=== PATIENT | male | born 1960 | race Caucasian/White ===

== ENCOUNTER → 2017-12-31 15:18 | Outpatient (CLI) | payer OTHER, SELFPAY ==
--- NOTE | 2017-12-31 15:20 | DI.CT.S_ITS ---
PROCEDURE: CT CHEST ABD PEL W CON INDICATIONS: PROSTATE CANCER TECHNIQUE: After the administration of oral and intravenous contrast, 5 mm thick sections acquired from the lung apices to the symphysis. 5 mm coronal and sagittal reformats were performed, with additional 7 mm coronal MIP reformats through the lungs. For radiation dose reduction, the following was used: automated exposure control, adjustment of mA and/or kV according to patient size. COMPARISON: Outside Facility, , CT ABDOMEN/PELVIS WITHOUT CONTRAST, 10/21/2016, 12:59. [facility], CT, CHEST/ABD/PEL WITH CONTRAST, 06/01/2017, 15:40. FINDINGS: Image quality: Excellent. CHEST: Lungs and pleura: No acute consolidation. Unchanged appearance of 4 mm right middle lobe pulmonary nodule on image 31 series 7. No pleural effusion or pneumothorax. The central airways appear grossly patent. Mediastinum: Heart size is normal. No pericardial effusion. No mediastinal or hilar adenopathy by size criteria. Thoracic aorta and central pulmonary arteries are normal in size. Esophagus is normal in caliber. No hiatal hernia. Chest wall: No axillary or supraclavicular adenopathy by size criteria. Thyroid gland negative. ABDOMEN: Solid organs: Liver is normal in size and enhancement. Gallbladder negative. Biliary system is non dilated. Pancreas enhances normally. Spleen is normal in size and enhancement. No adrenal nodules. Nonobstructive 3 mm renal calculus. No hydronephrosis. A presumed left renal cyst measuring 1 mm, technically too small to characterize. This appears grossly unchanged. Peritoneum and bowel: Bowel loops demonstrate normal wall thickness and caliber. No free fluid or air. Normal appendix. Nodes and vessels: No retroperitoneal or mesenteric adenopathy by size criteria. Aorta and inferior vena cava are normal in size. Miscellaneous: No ventral hernias. PELVIS: Genitourinary: Bladder wall thickness is normal. Miscellaneous: No inguinal hernias or adenopathy. Bones: Sclerotic lesion within the right ischial tuberosity, L3 vertebral body, and right anterior fourth rib in keeping with osseous metastases appear grossly unchanged. 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 No pathologically enlarged lymphadenopathy Stable appearance of a 4 mm right middle lobe pulmonary nodule. Recommend continued attention on subsequent studies. Nonobstructive right nephrolithiasis and left renal cyst. Dictated by: Galo Armstrong M.D. on 12/31/2017 at 17:06 Approved by: Gaol Armstrong M.D. on 12/31/2017 at 17:32
--- NOTE | 2018-01-01 09:59 | ONC.NAV ---
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 It is located in the pt p/u box at his convenience.
== END ==
PROVIDERS: PCP Nurse Practitioner Family; Visit Provider Nurse Practitioner Gerontology
DX: C61 Malignant neoplasm of prostate (principal); C79.51 Secondary malignant neoplasm of bone; R91.1 Solitary pulmonary nodule; N20.0 Calculus of kidney; N28.1 Cyst of kidney, acquired
CPT/HCPCS: 71260; 74177; Q9967

== ENCOUNTER 2018-03-18 07:19 | Day surgery (SDC) | payer OTHER, SELFPAY ==
[2018-03-18] VITALS (7 sets, daily range): BP systolic 93–111; BP diastolic 65–74; PULSE 62–71; RESP 10–16; TEMP 36.1–36.3; O2SAT 94–100; BMI 26.6
--- NOTE | 2018-03-18 08:53 | PM.HP.1 ---
History of Present Illness Date Patient Seen: 03/18/18 Time Patient Seen: 08:54 Chief complaint: [id number] SCREENING COLONOSCOPY Narrative: Very pleasant gentleman with a family history of colon cancer. He presents today to undergo his 4th screening colonoscopy. He reports that his mother was diagnosed at the age of 50. He denies any problems or symptoms related to the function of his GI tract. Patient History Family & Social History Family History: Reviewed 03/18/18 by Mylene Monzon MD Social History: household members children Meds Home Medications Medication Instructions Recorded Confirmed Type [MAITAKE MUSHROOM] QDAY #0 11/21/16 History [TURMERIC] QDAY #0 11/21/16 History calcium carbonate-vitamin D3 1 tab PO QDAY #0 11/21/16 History [Oyster Shell Calcium-Vit D3] cholecalciferol (vitamin D3) 10,000 PO QDAY #0 11/21/16 History [CATCLAW TEA] #0 12/10/16 History [TINC OF CHAGA FUNGUS] #0 12/10/16 History [PROBIOTIC] 1 cap Q AM #0 12/22/16 History olive leaf extract 250 mg PO QDAY #0 12/22/16 History [ASHTANGA] QDAY #0 01/07/17 History vitamin B complex [B 1 tab PO QDAY #0 02/18/17 History Complex-Vitamin B12] [HI CBD OIL] #0 03/13/17 History acyclovir 400 mg PO BID #60 tab 12/25/17 Rx sulfamethoxazole-trimethoprim 1 tab PO Q12H #14 tab 01/05/18 Rx [Bactrim DS] sildenafil 50 mg PO PRN PRN #30 tab 01/15/18 Rx Allergies Allergy/AdvReac Type Severity Reaction Status Date / Time No Known Drug Allergies Allergy Unknown Unverified 11/25/17 11:53 [NO KNOWN DRUG ALLERGIES] Review of Systems Review of Systems All systems reviewed & are unremarkable except as noted in HPI and below Exam Vital Signs (past 8 hours): - 03/18/18 08:27 Temperature 97.0 F L Pulse Rate 65 Respiratory Rate 16 Blood Pressure 111/74 Pulse Oximetry 100 Oxygen Delivery Method Room Air Narrative Exam Narrative: Well-nourished well-developed gentleman in no distress. HEENT: Normocephalic and atraumatic, pupils equal round reactive to light accommodation with anicteric sclera Lungs: Clear to auscultation bilaterally Heart: Regular rate and rhythm Abdomen: Soft, nontender, active bowel sounds Extremities: Warm well perfused Assessment & Plan Plan: Assessment/Plan Narrative: Pleasant and very healthy 57-year-old gentleman with a family history of colon cancer. We discussed risks and benefits of the procedure the patient has expressed a desire to continue and complete it today.
[2018-03-18] MEDS: fentaNYL 250 MCG/5 ML INJ IV (09:12)
[2018-03-18] MEDS: MIDAZOLAM 5 MG/5 ML VIAL IV (09:12)
--- NOTE | 2018-03-18 09:19 | PM.OP.1 ---
Operative Date/Time/Diagnoses Date of procedure: 03/18/18 Time of procedure: 09:19 Pre-op diagnosis: Family history of colon cancer Post-op diagnosis: same Procedure & Clinicians Procedure: Colonoscopy to the cecum Same procedure as scheduled: Yes Indications: Last colonoscopy 5 years ago Surgeon: Mylene Monzon Click Yes if Unassisted: Yes Anesthesia Type: Sedation (Versed 8 mg; fentanyl 200 mcg) Operative Notes Findings: 1. Excellent prep 2. No polyps or mass lesions 3. No AV malformations 4. Very minimal diverticulosis in the sigmoid region 5. Grade 1 internal hemorrhoids 6. Essentially normal colonoscopy Closure Type: not applicable Specimen(s): none sent Procedure in detail: After obtaining informed consent, the patient was brought to the GI suite and placed in the left lateral decubitus position on the examination table. After placement of appropriate monitors, the patient was given incremental doses of Versed and Fentanyl until an appropriate level of sedation was achieved. A time out was held per SCOAP protocol. A digital rectal examination was performed and did not reveal any masses or obstructing lesions. The colonoscope was gently passed into the patient's anus and the entire colon navigated to the level of the cecum with minimal difficulty. Once in the cecum, the scope was withdrawn being sure to go before and beyond all mucosal folds and prominences and get an excellent examination. The findings are noted above. At the level of the rectal vault, the scope was retroflexed and the internal anal canal was examined. The scope was straightened and air aspirated from the colon. The instrument was removed from the patient's body and the procedure was concluded. The patient was allowed to awaken from sedation without difficulty and taken to the post-anesthesia care unit in good condition. Total sedation time 18 min Total withdrawal time 11 min
== END 2018-03-18 10:25 | disposition home or self-care (01) ==
PROVIDERS: PCP Nurse Practitioner Family; Visit Provider Surgery
PROC: 0DJD8ZZ Inspection of Lower Intestinal Tract, Via Natural or Artificial Opening Endoscopic (ICD-10-PCS; CPT 45378; principal; 2018-03-18 08:45)
DX: Z12.11 Encounter for screening for malignant neoplasm of colon (principal); Z80.0 Family history of malignant neoplasm of digestive organs; K57.30 Diverticulosis of large intestine without perforation or abscess without bleeding; K64.0 First degree hemorrhoids
CPT/HCPCS: 45378; 99152; J2250; J3010

== ENCOUNTER → 2018-07-16 15:10 | Outpatient (CLI) | payer OTHER, SELFPAY ==
[2018-07-16 15:45] LABS: Add Manual Diff / Slide Review NO; Basophils Percent Auto 0.4 % (0-2); Hematocrit 37.2 % (41-53); Hemoglobin 12.9 g/dL (13.5-17.5); Lymphocytes Percent Auto 47.5 % (25-40); Mean Corpuscular HGB Conc 34.6 % (30-36); Mean Corpuscular Hemoglobin 31.2 PG (26-34); Mean Corpuscular Volume 90.1 fL (80-100); Monocytes Percent Auto 7.8 % (3-14); Neutrophils Absolute Auto 2300 /uL (3000-5900); Neutrophils Percent Auto 43.3 % (50-75); Platelet Count 260 X10^3/uL (150-400); Red Blood Cell Count 4.13 X10^6/uL (4.5-5.9); White Blood Cell Count 5.2 X10^3/uL (4.5-11.0)
[2018-07-16 16:00] LABS: Alanine Aminotransferase 41 IU/L (21-72); Albumin 4.5 g/dL (3.5-5.0); Albumin Globulin Ratio 1.5 (1.0-2.8); Alkaline Phosphatase 87 U/L (38-126); Aspartate Aminotransferase 29 IU/L (17-59); BUN Creatinine Ratio 21.3 (6-22); Bilirubin Total 0.6 mg/dL (0.2-1.3); Blood Urea Nitrogen 17 mg/dL (9-20); Calcium 9.2 mg/dL (8.4-10.2); Carbon Dioxide 21 mmol/L (22-32); Chloride 102 mmol/L (98-107); Estimated Glomerular Filt Rate > 60.0 mL/min (>60); Globulin 3.1 g/dL (1.7-4.1); Glucose 92 mg/dL (70-100); HEMOLYSIS < 15 (0-50); Potassium 3.8 mmol/L (3.4-5.1); Sodium 138 mmol/L (137-145); Total Protein 7.6 g/dL (6.3-8.2)
[2018-07-16 16:31] LABS: Prostate Specific Antigen 0.859 ng/mL (0.10-4.00)
== END ==
PROVIDERS: PCP Nurse Practitioner Family; Visit Provider Internal Medicine Hematology & Oncology
DX: C61 Malignant neoplasm of prostate (principal)
CPT/HCPCS: 36415; 80053; 84153; 85025

== ENCOUNTER → 2018-07-30 16:13 | Outpatient (CLI) | payer OTHER, SELFPAY ==
[2018-07-30 16:48] LABS: Add Manual Diff / Slide Review NO; Basophils Percent Auto 0.4 % (0-2); Eosinophils Percent Auto 1.3 % (2-4); Hematocrit 38.1 % (41-53); Hemoglobin 12.9 g/dL (13.5-17.5); Lymphocytes Percent Auto 46.6 % (25-40); Mean Corpuscular HGB Conc 33.9 % (30-36); Mean Corpuscular Volume 91.3 fL (80-100); Monocytes Percent Auto 10.5 % (3-14); Neutrophils Absolute Auto 2000 /uL (1500-7000); Neutrophils Percent Auto 41.2 % (50-75); Platelet Count 266 X10^3/uL (150-400); Red Blood Cell Count 4.17 X10^6/uL (4.5-5.9); Red Cell Distribution Width 13.9 % (11.6-14.8); White Blood Cell Count 4.9 X10^3/uL (4.5-11.0)
[2018-07-30 17:48] LABS: Alanine Aminotransferase 29 IU/L (21-72); Albumin 4.4 g/dL (3.5-5.0); Albumin Globulin Ratio 1.5 (1.0-2.8); Alkaline Phosphatase 64 U/L (38-126); Aspartate Aminotransferase 20 IU/L (17-59); BUN Creatinine Ratio 21.3 (6-22); Bilirubin Total 0.5 mg/dL (0.2-1.3); Blood Urea Nitrogen 17 mg/dL (9-20); Calcium 9.5 mg/dL (8.4-10.2); Carbon Dioxide 24 mmol/L (22-32); Chloride 103 mmol/L (98-107); Estimated Glomerular Filt Rate > 60.0 mL/min (>60); Globulin 2.9 g/dL (1.7-4.1); Glucose 92 mg/dL (70-100); HEMOLYSIS < 15 (0-50); Potassium 4.4 mmol/L (3.4-5.1); Sodium 141 mmol/L (137-145); Total Protein 7.3 g/dL (6.3-8.2)
[2018-07-30 18:17] LABS: Prostate Specific Antigen 0.616 ng/mL (0.10-4.00)
== END ==
PROVIDERS: PCP Nurse Practitioner Family; Visit Provider Internal Medicine Hematology & Oncology
DX: C61 Malignant neoplasm of prostate (principal)
CPT/HCPCS: 36415; 80053; 84153; 85025

== ENCOUNTER → 2018-08-31 15:46 | Outpatient (CLI) | payer OTHER, SELFPAY ==
[2018-08-31 16:19] LABS: Add Manual Diff / Slide Review NO; Basophils Absolute Auto 0 /uL (0-100); Basophils Percent Auto 0.2 % (0-2); Eosinophils Absolute Auto 100 /uL (0-450); Eosinophils Percent Auto 1.2 % (2-4); Hematocrit 38.8 % (41-53); Lymphocytes Absolute Auto 2200 /uL (1100-4500); Lymphocytes Percent Auto 50.1 % (25-40); Mean Corpuscular HGB Conc 33.5 % (30-36); Mean Corpuscular Hemoglobin 30.9 PG (26-34); Mean Corpuscular Volume 92.2 fL (80-100); Monocytes Absolute Auto 400 /uL (0-900); Monocytes Percent Auto 8.2 % (3-14); Neutrophils Absolute Auto 1800 /uL (1500-7000); Neutrophils Percent Auto 40.3 % (50-75); Platelet Count 240 X10^3/uL (150-400); Red Blood Cell Count 4.21 X10^6/uL (4.5-5.9); Red Cell Distribution Width 14.2 % (11.6-14.8); White Blood Cell Count 4.4 X10^3/uL (4.5-11.0)
[2018-08-31 16:43] LABS: Alanine Aminotransferase 21 IU/L (21-72); Albumin 4.2 g/dL (3.5-5.0); Albumin Globulin Ratio 1.4 (1.0-2.8); Alkaline Phosphatase 51 U/L (38-126); Aspartate Aminotransferase 20 IU/L (17-59); BUN Creatinine Ratio 23.8 (6-22); Bilirubin Total 0.3 mg/dL (0.2-1.3); Blood Urea Nitrogen 19 mg/dL (9-20); Carbon Dioxide 25 mmol/L (22-32); Chloride 105 mmol/L (98-107); Estimated Glomerular Filt Rate > 60.0 mL/min (>60); Globulin 3.1 g/dL (1.7-4.1); Glucose 91 mg/dL (70-100); HEMOLYSIS < 15 (0-50); Phosphorous 3.6 mg/dL (2.5-4.5); Sodium 139 mmol/L (137-145); Total Protein 7.3 g/dL (6.3-8.2)
[2018-09-02 13:55] LABS: Prostate Specific Antigen 0.178 ng/mL (0.10-4.00)
== END ==
PROVIDERS: PCP Nurse Practitioner Family; Visit Provider Internal Medicine Hematology & Oncology
DX: C61 Malignant neoplasm of prostate (principal)
CPT/HCPCS: 36415; 80053; 83735; 84100; 84153; 85025

== ENCOUNTER → 2018-09-24 14:46 | Outpatient (CLI) | payer OTHER, SELFPAY ==
[2018-09-24 16:19] LABS: Prostate Specific Antigen 0.126 ng/mL (0.10-4.00)
== END ==
PROVIDERS: Family Provider Nurse Practitioner Family; PCP Nurse Practitioner Family; Visit Provider Internal Medicine Hematology & Oncology
DX: C61 Malignant neoplasm of prostate (principal)
CPT/HCPCS: 36415; 84153

== ENCOUNTER → 2018-10-29 15:37 | Outpatient (CLI) | payer OTHER, SELFPAY | PROVIDERS: Family Provider Nurse Practitioner Family; PCP Nurse Practitioner Family; Visit Provider Internal Medicine Hematology & Oncology | DX: C61 Malignant neoplasm of prostate (principal) | CPT/HCPCS: 36415; 84153 ==

== ENCOUNTER → 2018-11-22 11:00 | Outpatient (CLI) | payer OTHER, SELFPAY ==
[2018-11-22 13:06] LABS: Prostate Specific Antigen 0.097 ng/mL (0.10-4.00)
== END ==
PROVIDERS: Family Provider Nurse Practitioner Family; PCP Nurse Practitioner Family; Visit Provider Internal Medicine Hematology & Oncology
DX: C61 Malignant neoplasm of prostate (principal)
CPT/HCPCS: 36415; 84153

== ENCOUNTER → 2019-01-07 11:13 | Outpatient (CLI) | payer OTHER, SELFPAY ==
[2019-01-07 12:10] LABS: Alanine Aminotransferase 14 IU/L (21-72); Albumin 3.8 g/dL (3.5-5.0); Albumin Globulin Ratio 1.3 (1.0-2.8); Alkaline Phosphatase 47 U/L (38-126); Aspartate Aminotransferase 21 IU/L (17-59); BUN Creatinine Ratio 22.9 (6-22); Bilirubin Total 0.6 mg/dL (0.2-1.3); Blood Urea Nitrogen 16 mg/dL (9-20); Calcium 9.1 mg/dL (8.4-10.2); Carbon Dioxide 26 mmol/L (22-32); Chloride 100 mmol/L (98-107); Estimated Glomerular Filt Rate > 60.0 mL/min (>60); Globulin 2.9 g/dL (1.7-4.1); Glucose 86 mg/dL (70-100); HEMOLYSIS < 15 (0-50); Potassium 3.7 mmol/L (3.4-5.1); Sodium 135 mmol/L (137-145); Total Protein 6.7 g/dL (6.3-8.2)
[2019-01-07 12:40] LABS: Prostate Specific Antigen 0.088 ng/mL (0.10-4.00)
== END ==
PROVIDERS: Family Provider Nurse Practitioner Family; PCP Nurse Practitioner Family; Visit Provider Internal Medicine Hematology & Oncology
DX: C61 Malignant neoplasm of prostate (principal)
CPT/HCPCS: 36415; 80053; 84153

== ENCOUNTER → 2019-02-09 09:12 | Outpatient (CLI) | payer OTHER, SELFPAY ==
[2019-02-09 11:11] LABS: Alanine Aminotransferase 8 IU/L (21-72); Albumin 3.8 g/dL (3.5-5.0); Albumin Globulin Ratio 1.3 (1.0-2.8); Alkaline Phosphatase 49 U/L (38-126); Aspartate Aminotransferase 21 IU/L (17-59); Bilirubin Total 0.4 mg/dL (0.2-1.3); Blood Urea Nitrogen 24 mg/dL (9-20); Carbon Dioxide 25 mmol/L (22-32); Chloride 105 mmol/L (98-107); Estimated Glomerular Filt Rate > 60.0 mL/min (>60); Globulin 2.9 g/dL (1.7-4.1); Glucose 84 mg/dL (70-100); Potassium 4.2 mmol/L (3.4-5.1); Sodium 139 mmol/L (137-145); Total Protein 6.7 g/dL (6.3-8.2)
[2019-02-09 12:13] LABS: HEMOLYSIS < 15 (0-50)
[2019-02-09 12:15] LABS: Prostate Specific Antigen < 0.064 ng/mL (0.10-4.00)
== END ==
PROVIDERS: Family Provider Nurse Practitioner Family; PCP Nurse Practitioner Family; Visit Provider Internal Medicine Hematology & Oncology
DX: C61 Malignant neoplasm of prostate (principal)
CPT/HCPCS: 36415; 80053; 84153

== ENCOUNTER → 2019-03-16 15:54 | Outpatient (CLI) | payer OTHER, SELFPAY ==
[2019-03-16 16:53] LABS: Prostate Specific Antigen < 0.064 ng/mL (0.10-4.00)
== END ==
PROVIDERS: Family Provider Nurse Practitioner Family; PCP Nurse Practitioner Family; Visit Provider Internal Medicine Hematology & Oncology
DX: C61 Malignant neoplasm of prostate (principal)
CPT/HCPCS: 36415; 84153

== ENCOUNTER → 2019-04-28 15:26 | Outpatient (CLI) | payer OTHER, SELFPAY ==
[2019-04-28 16:55] LABS: Prostate Specific Antigen 0.082 ng/mL (0.10-4.00)
== END ==
PROVIDERS: PCP Nurse Practitioner Family; Visit Provider Internal Medicine Hematology & Oncology
DX: R97.20 Elevated prostate specific antigen [PSA] (principal)
CPT/HCPCS: 36415; 84153

== ENCOUNTER → 2019-05-31 15:34 | Outpatient (CLI) | payer OTHER, SELFPAY ==
[2019-05-31 17:06] LABS: Alanine Aminotransferase 14 IU/L (21-72); Albumin 4.2 g/dL (3.5-5.0); Albumin Globulin Ratio 1.5 (1.0-2.8); Alkaline Phosphatase 52 U/L (38-126); Aspartate Aminotransferase 22 IU/L (17-59); BUN Creatinine Ratio 18.9 (6-22); Bilirubin Total 0.6 mg/dL (0.2-1.3); Blood Urea Nitrogen 17 mg/dL (9-20); Calcium 9.3 mg/dL (8.4-10.2); Carbon Dioxide 24 mmol/L (22-32); Chloride 103 mmol/L (98-107); Estimated Glomerular Filt Rate > 60.0 mL/min (>60); Globulin 2.8 g/dL (1.7-4.1); Glucose 90 mg/dL (70-100); HEMOLYSIS < 15 (0-50); Potassium 3.8 mmol/L (3.4-5.1); Sodium 137 mmol/L (137-145)
[2019-05-31 17:36] LABS: Prostate Specific Antigen 0.117 ng/mL (0.10-4.00)
== END ==
PROVIDERS: PCP Nurse Practitioner Family; Visit Provider Internal Medicine Hematology & Oncology
DX: C61 Malignant neoplasm of prostate (principal)
CPT/HCPCS: 36415; 80053; 84153

== ENCOUNTER → 2019-06-29 15:26 | Outpatient (CLI) | payer OTHER, SELFPAY ==
[2019-06-29 17:16] LABS: Alanine Aminotransferase 15 IU/L (<50); Albumin 4.1 g/dL (3.5-5.0); Albumin Globulin Ratio 1.4 (1.0-2.8); Alkaline Phosphatase 60 U/L (38-126); Aspartate Aminotransferase 27 IU/L (17-59); BUN Creatinine Ratio 26.3 (6-22); Bilirubin Total 0.5 mg/dL (0.2-1.3); Blood Urea Nitrogen 21 mg/dL (9-20); Calcium 8.9 mg/dL (8.4-10.2); Carbon Dioxide 26 mmol/L (22-32); Chloride 102 mmol/L (98-107); Estimated Glomerular Filt Rate > 60.0 mL/min (>60); Globulin 2.9 g/dL (1.7-4.1); Glucose 94 mg/dL (70-100); HEMOLYSIS < 15 (0-50); Potassium 3.8 mmol/L (3.4-5.1); Sodium 139 mmol/L (137-145)
[2019-06-29 17:49] LABS: Prostate Specific Antigen 0.147 ng/mL (0.10-4.00)
== END ==
PROVIDERS: PCP Nurse Practitioner Family; Visit Provider Internal Medicine Hematology & Oncology
DX: C61 Malignant neoplasm of prostate (principal)
CPT/HCPCS: 36415; 80053; 84153

== ENCOUNTER → 2019-07-28 16:13 | Outpatient (CLI) | payer OTHER, SELFPAY ==
[2019-07-28 17:09] LABS: HEMOLYSIS < 15 (0-50)
[2019-07-28 17:19] LABS: Alanine Aminotransferase 17 IU/L (<50); Albumin 4.1 g/dL (3.5-5.0); Albumin Globulin Ratio 1.4 (1.0-2.8); Alkaline Phosphatase 63 U/L (38-126); Aspartate Aminotransferase 24 IU/L (17-59); BUN Creatinine Ratio 21.1 (6-22); Bilirubin Total 0.5 mg/dL (0.2-1.3); Blood Urea Nitrogen 19 mg/dL (9-20); Calcium 9.5 mg/dL (8.4-10.2); Carbon Dioxide 27 mmol/L (22-32); Chloride 102 mmol/L (98-107); Estimated Glomerular Filt Rate > 60.0 mL/min (>60); Glucose 85 mg/dL (70-100); Potassium 3.7 mmol/L (3.4-5.1); Sodium 139 mmol/L (137-145); Total Protein 7.1 g/dL (6.3-8.2)
[2019-07-28 17:42] LABS: Prostate Specific Antigen 0.154 ng/mL (0.10-4.00)
== END ==
PROVIDERS: Family Provider Nurse Practitioner Family; PCP Nurse Practitioner Family; Visit Provider Internal Medicine Hematology & Oncology
DX: C61 Malignant neoplasm of prostate (principal)
CPT/HCPCS: 36415; 80053; 84153

== ENCOUNTER → 2019-08-30 09:14 | Outpatient (CLI) | payer OTHER, SELFPAY ==
[2019-08-30 10:50] LABS: Add Manual Diff / Slide Review NO; Basophils Absolute Auto 0 /uL (0-100); Basophils Percent Auto 0.2 % (0-2); Eosinophils Absolute Auto 0 /uL (0-450); Hematocrit 38.3 % (41-53); Lymphocytes Absolute Auto 2000 /uL (1100-4500); Lymphocytes Percent Auto 44.8 % (25-40); Mean Corpuscular Hemoglobin 31.7 PG (26-34); Mean Corpuscular Volume 93.1 fL (80-100); Monocytes Absolute Auto 400 /uL (0-900); Monocytes Percent Auto 9.6 % (3-14); Neutrophils Absolute Auto 2000 /uL (1500-7000); Neutrophils Percent Auto 44.4 % (50-75); Platelet Count 242 X10^3/uL (150-400); Red Blood Cell Count 4.11 X10^6/uL (4.5-5.9); Red Cell Distribution Width 13.4 % (11.6-14.8); White Blood Cell Count 4.6 X10^3/uL (4.5-11.0)
[2019-08-30 11:04] LABS: Alanine Aminotransferase 13 IU/L (<50); Albumin Globulin Ratio 1.3 (1.0-2.8); Alkaline Phosphatase 62 U/L (38-126); Aspartate Aminotransferase 22 IU/L (17-59); BUN Creatinine Ratio 21.3 (6-22); Bilirubin Total 0.4 mg/dL (0.2-1.3); Blood Urea Nitrogen 17 mg/dL (9-20); Calcium 9.1 mg/dL (8.4-10.2); Carbon Dioxide 26 mmol/L (22-32); Chloride 100 mmol/L (98-107); Estimated Glomerular Filt Rate > 60.0 mL/min (>60); Globulin 3.1 g/dL (1.7-4.1); Glucose 81 mg/dL (70-100); HEMOLYSIS < 15 (0-50); Phosphorous 2.8 mg/dL (2.5-4.5); Potassium 3.9 mmol/L (3.4-5.1); Sodium 135 mmol/L (137-145); Total Protein 7.1 g/dL (6.3-8.2)
== END ==
PROVIDERS: PCP Nurse Practitioner Family; Visit Provider Internal Medicine Hematology & Oncology
DX: C61 Malignant neoplasm of prostate (principal)
CPT/HCPCS: 36415; 80053; 83735; 84100; 85025

== ENCOUNTER → 2019-09-05 13:10 | Outpatient (CLI) | payer OTHER, SELFPAY ==
[2019-09-05 15:37] LABS: Prostate Specific Antigen 0.203 ng/mL (0.10-4.00)
== END ==
PROVIDERS: PCP Nurse Practitioner Family; Visit Provider Internal Medicine Hematology & Oncology
DX: C61 Malignant neoplasm of prostate (principal)
CPT/HCPCS: 36415; 84153

== ENCOUNTER → 2019-10-05 15:59 | Outpatient (CLI) | payer OTHER, SELFPAY ==
[2019-10-05 18:31] LABS: Prostate Specific Antigen 0.242 ng/mL (0.10-4.00)
== END ==
PROVIDERS: PCP Nurse Practitioner Family; Referring Provider Nurse Practitioner Gerontology; Visit Provider Nurse Practitioner Gerontology
DX: C61 Malignant neoplasm of prostate (principal)
CPT/HCPCS: 36415; 84153

== ENCOUNTER → 2019-11-09 08:17 | Outpatient (CLI) | payer OTHER, SELFPAY ==
[2019-11-09 10:09] LABS: Prostate Specific Antigen 0.246 ng/mL (0.10-4.00)
== END ==
PROVIDERS: PCP Nurse Practitioner Family; Referring Provider Nurse Practitioner Gerontology; Visit Provider Nurse Practitioner Gerontology
DX: C61 Malignant neoplasm of prostate (principal)
CPT/HCPCS: 36415; 84153

== ENCOUNTER → 2019-12-02 08:01 | Outpatient (CLI) | payer OTHER, SELFPAY ==
[2019-12-02 08:57] LABS: Prostate Specific Antigen 0.408 ng/mL (0.10-4.00)
== END ==
PROVIDERS: PCP Nurse Practitioner Family; Referring Provider Internal Medicine Hematology & Oncology; Visit Provider Internal Medicine Hematology & Oncology
DX: C61 Malignant neoplasm of prostate (principal)
CPT/HCPCS: 36415; 84153

== ENCOUNTER → 2019-12-28 07:06 | Outpatient (CLI) | payer OTHER, SELFPAY ==
[2019-12-28 08:55] LABS: Prostate Specific Antigen 0.237 ng/mL (0.10-4.00)
== END ==
PROVIDERS: PCP Nurse Practitioner Family; Referring Provider Nurse Practitioner Gerontology; Visit Provider Nurse Practitioner Gerontology
DX: C61 Malignant neoplasm of prostate (principal)
CPT/HCPCS: 36415; 84153

== ENCOUNTER → 2020-01-30 14:09 | Outpatient (CLI) | payer OTHER, SELFPAY ==
[2020-01-30 16:43] LABS: Prostate Specific Antigen 0.248 ng/mL (0.10-4.00)
== END ==
PROVIDERS: PCP Nurse Practitioner Family; Referring Provider Nurse Practitioner Gerontology; Visit Provider Nurse Practitioner Gerontology
DX: C61 Malignant neoplasm of prostate (principal)
CPT/HCPCS: 36415; 84153

== ENCOUNTER → 2020-03-06 08:33 | Outpatient (CLI) | payer OTHER, SELFPAY ==
[2020-03-06 09:33] LABS: Prostate Specific Antigen 0.319 ng/mL (0.10-4.00)
== END ==
PROVIDERS: PCP Nurse Practitioner Family; Referring Provider Internal Medicine Hematology & Oncology; Visit Provider Internal Medicine Hematology & Oncology
DX: C61 Malignant neoplasm of prostate (principal)
CPT/HCPCS: 36415; 84153

== ENCOUNTER → 2020-04-05 06:56 | Outpatient (CLI) | payer OTHER, SELFPAY ==
[2020-04-05 09:20] LABS: Prostate Specific Antigen 0.335 ng/mL (0.10-4.00)
== END ==
PROVIDERS: PCP Nurse Practitioner Family; Referring Provider Internal Medicine Hematology & Oncology; Visit Provider Internal Medicine Hematology & Oncology
DX: C61 Malignant neoplasm of prostate (principal)
CPT/HCPCS: 36415; 84153

== ENCOUNTER → 2020-05-01 07:17 | Outpatient (CLI) | payer OTHER, SELFPAY | PROVIDERS: PCP Nurse Practitioner Family; Referring Provider Internal Medicine Hematology & Oncology; Visit Provider Internal Medicine Hematology & Oncology | DX: C61 Malignant neoplasm of prostate (principal) | CPT/HCPCS: 36415; 84153 ==

== ENCOUNTER → 2020-05-31 15:31 | Outpatient (CLI) | payer OTHER, SELFPAY ==
[2020-05-31 18:26] LABS: Prostate Specific Antigen 0.392 ng/mL (0.10-4.00)
== END ==
PROVIDERS: PCP Nurse Practitioner Family; Referring Provider Internal Medicine Hematology & Oncology; Visit Provider Internal Medicine Hematology & Oncology
DX: C61 Malignant neoplasm of prostate (principal)
CPT/HCPCS: 36415; 84153

== ENCOUNTER → 2020-06-29 15:12 | Outpatient (CLI) | payer OTHER, SELFPAY ==
[2020-06-29 17:54] LABS: Prostate Specific Antigen 0.436 ng/mL (0.10-4.00)
== END ==
PROVIDERS: Referring Provider Internal Medicine Hematology & Oncology; Visit Provider Internal Medicine Hematology & Oncology
DX: C61 Malignant neoplasm of prostate (principal)
CPT/HCPCS: 36415; 84153

== ENCOUNTER → 2020-07-30 15:48 | Outpatient (CLI) | payer OTHER, SELFPAY ==
[2020-07-30 17:53] LABS: Prostate Specific Antigen 0.492 ng/mL (0.10-4.00)
== END ==
PROVIDERS: Referring Provider Internal Medicine Hematology & Oncology; Visit Provider Internal Medicine Hematology & Oncology
DX: C61 Malignant neoplasm of prostate (principal)
CPT/HCPCS: 36415; 84153

== ENCOUNTER → 2020-10-03 12:18 | Outpatient (CLI) | payer OTHER, SELFPAY ==
[2020-10-03 15:11] LABS: Prostate Specific Antigen 0.573 ng/mL (0.10-4.00)
== END ==
PROVIDERS: Referring Provider Internal Medicine Hematology & Oncology; Visit Provider Internal Medicine Hematology & Oncology
DX: C61 Malignant neoplasm of prostate (principal)
CPT/HCPCS: 36415; 84153

== ENCOUNTER → 2020-10-31 16:22 | Outpatient (CLI) | payer OTHER, SELFPAY ==
[2020-10-31 18:16] LABS: Prostate Specific Antigen 0.771 ng/mL (0.10-4.00)
== END ==
PROVIDERS: Referring Provider Internal Medicine Hematology & Oncology; Visit Provider Internal Medicine Hematology & Oncology
DX: C61 Malignant neoplasm of prostate (principal)
CPT/HCPCS: 36415; 84153

== ENCOUNTER → 2021-01-07 15:50 | Outpatient (CLI) | payer OTHER, SELFPAY ==
[2021-01-07 18:13] LABS: Prostate Specific Antigen 1.22 ng/mL (0.10-4.00)
== END ==
PROVIDERS: Referring Provider Internal Medicine Hematology & Oncology; Visit Provider Internal Medicine Hematology & Oncology
DX: C79.82 Secondary malignant neoplasm of genital organs (principal)
CPT/HCPCS: 36415; 84153

== ENCOUNTER → 2021-01-16 08:54 | Outpatient (CLI) | payer SELFPAY ==
[2021-01-16 09:20] LABS: Specimen Label KIT
== END ==
PROVIDERS: PCP Nurse Practitioner Family
DX: Z13.9 Encounter for screening, unspecified (principal)
CPT/HCPCS: 36415

== ENCOUNTER → 2021-01-25 15:14 | Outpatient (CLI) | payer OTHER, SELFPAY ==
--- NOTE | 2021-01-25 | DI.RAD.S_ITS ---
PROCEDURE: XR CHEST 2V INDICATIONS: COUGH TECHNIQUE: 2 views of the chest were acquired. COMPARISON: [facility], CHEST 1 VIEW, 05/08/2017, 12:59. [facility], CHEST 1 VIEW, 12/17/2016, 16:11. FINDINGS: Surgical changes and devices: None. Lungs and pleura: Lungs are clear. No pleural effusions or pneumothorax. Mediastinum: Mediastinal contours are normal. Heart size is normal. Bones and chest wall: No suspicious bony abnormalities. Soft tissues appear unremarkable. IMPRESSION: Normal for age, source of current cough symptoms is not seen. Dictated by: Abisai Benedict M.D. on 01/25/2021 at 17:54 Approved by: Abisai Bendeict M.D. on 01/25/2021 at 17:54
== END ==
PROVIDERS: PCP Nurse Practitioner Family; Referring Provider Family Medicine; Visit Provider Family Medicine
DX: R05 Cough (principal)
CPT/HCPCS: 71046

== ENCOUNTER → 2021-02-19 16:25 | Outpatient (CLI) | payer OTHER, SELFPAY ==
[2021-02-20 07:46] LABS: PSA Free % 5.6 % (.); PSA, Total 0.9 ng/mL (0.0-4.0)
== END ==
PROVIDERS: PCP Family Medicine; Referring Provider Internal Medicine Hematology & Oncology; Visit Provider Internal Medicine Hematology & Oncology
DX: C61 Malignant neoplasm of prostate (principal)
CPT/HCPCS: 36415; 84153; 84154

== ENCOUNTER → 2021-03-22 07:55 | Outpatient (CLI) | payer OTHER, SELFPAY ==
[2021-03-22 10:03] LABS: Prostate Specific Antigen 1.18 ng/mL (0.10-4.00)
== END ==
PROVIDERS: PCP Family Medicine; Referring Provider Internal Medicine Hematology & Oncology; Visit Provider Internal Medicine Hematology & Oncology
DX: R97.20 Elevated prostate specific antigen [PSA] (principal)
CPT/HCPCS: 36415; 84153

== ENCOUNTER → 2021-05-01 09:28 | Outpatient (CLI) | payer OTHER, SELFPAY ==
[2021-05-01 11:22] LABS: COVID-19 CEPHEID PCR (VTM/NP) Negative (Negative)
== END ==
PROVIDERS: PCP Family Medicine; Visit Provider Nurse Practitioner Family
DX: Z20.822 Contact with and (suspected) exposure to COVID-19 (principal)
CPT/HCPCS: U0003

== ENCOUNTER → 2021-06-27 09:31 | Outpatient (CLI) | payer OTHER, SELFPAY | PROVIDERS: PCP Family Medicine; Referring Provider Internal Medicine Hematology & Oncology; Visit Provider Internal Medicine Hematology & Oncology | DX: M85.851 Other specified disorders of bone density and structure, right thigh (principal); C61 Malignant neoplasm of prostate | CPT/HCPCS: 77080 ==

== ENCOUNTER 2021-07-19 11:03 | Emergency (ER) | payer OTHER, SELFPAY ==
[2021-07-19] VITALS (17 sets, daily range): BP systolic 117–146; BP diastolic 75–90; PULSE 58–68; RESP 11–28; TEMP 36.2; O2SAT 99–100; BMI 26.6
--- NOTE | 2021-07-19 11:31 | DI.CT.S_ITS ---
PROCEDURE: CT HEAD/BRAIN WO CON INDICATIONS: right arm weak, confusion, ataxia TECHNIQUE: Noncontrast 4.5 mm thick angled axial sections acquired from the foramen magnum to the vertex, with coronal and sagittal reformats. For radiation dose reduction, the following was used: automated exposure control, adjustment of mA and/or kV according to patient size. COMPARISON: [facility], CT, HEAD WITHOUT CONTRAST, 05/08/2017, 12:57. FINDINGS: Image quality: Excellent. CSF spaces: Basal cisterns are patent. No extra-axial fluid collections. The ventricles are symmetric in size and shape. Brain: No intracranial bleeds or masses. There is cerebral volume loss for age, with resultant ventricular and sulcal prominence. There are periventricular and deep white matter chronic small vessel ischemic changes. There is intracranial internal carotid artery atherosclerosis. Skull and face: Calvarium and visualized facial bones appear intact, without suspicious lesions. Sinuses: Visualized sinuses and mastoids are clear. IMPRESSION: No acute intracranial process. Dictated by: Galo Armstrong M.D. on 07/19/2021 at 12:08 Approved by: Galo Armstrong M.D. on 07/19/2021 at 12:10
--- NOTE | 2021-07-19 11:32 | DI.CT.S_ITS ---
PROCEDURE: CT CERVICAL SPINE WO CON INDICATIONS: right arm tingling / cold per pt. h/o prostate ca w/bone met TECHNIQUE: Noncontrast 3 mm thick sections acquired from the skull base to the T4 level. Sagittal and coronal reformats were then constructed. For radiation dose reduction, the following was used: automated exposure control, adjustment of mA and/or kV according to patient size. COMPARISON: None. FINDINGS: Image quality: Excellent. Bones: No acute fracture. Straightening of the normal lordotic curvature. Grade 1 anterolisthesis of C4 on C5. Multilevel degenerative endplate sclerosis and spurring. Diffuse facet arthropathy. Moderate to severe narrowing of the C5-C6 and C6-C7 disc spaces. Partially visualized lateral curvature of the spine. No definite focal sclerotic metastasis seen in the cervical spine. Soft tissues: Prevertebral soft tissues are normal in thickness. No paravertebral hematomas. No apical pneumothoraces. IMPRESSION: No acute fracture identified. Spondylitic changes and facet arthropathy as above. Dictated by: Galo Armstrong M.D. on 07/19/2021 at 12:19 Approved by: Galo Armstrong M.D. on 07/19/2021 at 12:26
[2021-07-19 11:45] LABS: Add Manual Diff / Slide Review NO; Basophils Absolute Auto 0 /uL (0-100); Basophils Percent Auto 0.4 % (0-2); Eosinophils Absolute Auto 0 /uL (0-450); Eosinophils Percent Auto 0.9 % (2-4); Hematocrit 37.9 % (41-53); Lymphocytes Absolute Auto 1900 /uL (1100-4500); Lymphocytes Percent Auto 42.1 % (25-40); Mean Corpuscular HGB Conc 34.3 % (30-36); Mean Corpuscular Hemoglobin 31.5 PG (26-34); Mean Corpuscular Volume 91.8 fL (80-100); Monocytes Absolute Auto 500 /uL (0-900); Monocytes Percent Auto 9.9 % (3-14); Neutrophils Absolute Auto 2100 /uL (1500-7000); Neutrophils Percent Auto 46.7 % (50-75); Platelet Count 246 X10^3/uL (150-400); Red Blood Cell Count 4.13 X10^6/uL (4.5-5.9); Red Cell Distribution Width 13.2 % (11.6-14.8); White Blood Cell Count 4.6 X10^3/uL (4.5-11.0)
[2021-07-19 11:54] LABS: Prothrombin Time 11.1 SECONDS (10.1-12.7)
[2021-07-19 11:57] LABS: PTT Partial Thromboplastin Tim 33 SECONDS (26.4-36.2)
[2021-07-19 12:01] LABS: Alanine Aminotransferase 16 IU/L (<50); Albumin 4.2 g/dL (3.5-5.0); Albumin Globulin Ratio 1.4 (1.0-2.8); Alkaline Phosphatase 37 U/L (38-126); Aspartate Aminotransferase 26 IU/L (17-59); BUN Creatinine Ratio 18.2 (6-22); Bilirubin Total 0.7 mg/dL (0.2-1.3); Blood Urea Nitrogen 14 mg/dL (9-20); Calcium 8.9 mg/dL (8.4-10.2); Carbon Dioxide 25 mmol/L (22-32); Chloride 103 mmol/L (98-107); Creatine Kinase 65 U/L (55-170); Estimated Glomerular Filt Rate > 60.0 mL/min (>60); Glucose 95 mg/dL (70-100); HEMOLYSIS 45 (0-50); Potassium 3.7 mmol/L (3.4-5.1); Sodium 134 mmol/L (137-145); Total Protein 7.2 g/dL (6.3-8.2)
[2021-07-19 12:11] LABS: Troponin I < 0.012 ng/mL (0.01-0.034)
--- NOTE | 2021-07-19 12:45 | PC.NURSE ---
Pt states Thursday (4 days ago) he has a period of profound full body weakness that lasted about 1 min. States the next day he had curtain vision in his R eye with some residual tingling that is still mildy apparent on his R arm. States that he googled his sx and decided to go to the eye doctor to r/o retinal detachment. Was cleared by eye doctor and told to f/u with pcp. Pt saw Dr Zheng who placed him on a baby ASA and statin. pt states that he started the statin but has not started the baby ASA.
--- NOTE | 2021-07-19 13:22 | ED.NEUROSD ---
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 The throughout the week he has had a couple of episodes concerning for TIA. 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 The following day he had a visual change in his right eye. He had a clear horizontal line in his right eye. He is actually evaluated by ophthalmology who stated his retina was not detached there was concern for probable TIA he was then sent to his primary care provider who has ordered outpatient workup including echocardiogram and carotid Dopplers. This morning however he was trying to make a test something that he has done for numerous years he was copy and pasted but was unable to coordinate hand I in order to do that. He could not copy and paste the right information. It lasted for 90 minutes. Symptoms now resolved. He no longer has any visual issues no numbness tingling or weakness. On Anticoagulants: Yes (ASA 81 mg daily) Related Data Home Medications Medication Instructions Recorded Confirmed [MAITAKE MUSHROOM] QDAY #0 11/21/16 [TURMERIC] QDAY #0 11/21/16 calcium carbonate 500 mg (1,250 1 tab PO QDAY #0 11/21/16 05/26/18 mg)-vitamin D3 200 unit tablet (Oyster Shell Calcium-Vit D3) cholecalciferol (vitamin D3) 250 10,000 PO QDAY #0 11/21/16 mcg (10,000 unit) tablet [CATCLAW TEA] #0 12/10/16 [TINC OF [place] FUNGUS] #0 12/10/16 [PROBIOTIC] 1 cap Q AM #0 12/22/16 olive leaf extract 250 mg capsule 250 mg PO QDAY #0 12/22/16 05/26/18 [ASHTANGA] QDAY #0 01/07/17 vitamin B complex (B 1 tab PO QDAY #0 02/18/17 05/26/18 Complex-Vitamin B12) [HI CBD OIL] #0 03/13/17 Previous Rx's Medication Instructions Recorded acyclovir 400 mg tablet 400 mg PO BID #60 tab 12/25/17 sulfamethoxazole 800 1 tab PO Q12H #14 tab 01/05/18 mg-trimethoprim 160 mg tablet (Bactrim DS) sildenafil 50 mg tablet 50 mg PO PRN PRN #30 tab 01/15/18 Allergies Allergy/AdvReac Type Severity Reaction Status Date / Time No Known Drug Allergies Allergy Unknown Verified 07/19/21 11:30 [NO KNOWN DRUG ALLERGIES] Review of Systems Review of Systems Narrative: GENERAL: Denies chills, fatigue, malaise, fever, sweats, travel HEENT: Denies sinus pain, ear pain, sore throat, difficulty swallowing, neck pain RESPIRATORY: Denies dyspnea, cough, wheezing, hemoptysis, sputum. CARDIOVASCULAR: Denies chest pain, palpitations, orthopnea, edema GASTROINTESTINAL: Denies nausea, vomiting, abdominal pain, diarrhea, constipation, melena. : Denies dysuria, frequency, incontinence, hematuria, urinary retention, flank pain. MUSCULOSKELETAL: Denies weakness, joint pain, or bony pain SKIN: No rash, no erythema, no pruritus NEUROLOGIC: See HPI PSYCHIATRIC: No concerning psychosocial issues. 12 point review of systems is negative except for those stated above and HPI Hematologic/Lymphatic On Anticoagulants: Yes (ASA 81 mg daily) Patient History Social History household members: children Smoking Status: Never smoker Smoking Status: Never smoker Exam Initial Vital Signs Initial Vital Signs: Vital Signs Temperature 97.1 F L 07/19/21 11:23 Pulse Rate 68 07/19/21 11:23 Respiratory Rate 18 07/19/21 11:23 Blood Pressure 139/82 07/19/21 11:23 Pulse Oximetry 100 07/19/21 11:23 GENERAL: Alert 60-year-old and in no acute distress. HEENT: Head atraumatic,EOMI, pupils reactive, face symmetric, moist mucous membranes CARDIOVASCULAR: Regular rate and rhythm without murmurs, rubs or gallops. RESPIRATORY: Breath sounds equal bilaterally, no wheezes rales or rhonchi. ABDOMEN: Soft, nontender. Normoactive bowel sounds all 4 quadrants. No guarding or rebound. EXTREMITIES: Normal range of motion, no clubbing or edema. Neurovascularly intact NEUROLOGICAL: Alert and oriented x4.Normal gait and speech. Cranial nerves II through XII grossly intact. Good rblzbk-fx-ktuo, good tdck-yt-mvdu, strength equal bilaterally, no dysarthria or aphasia, sensation in tact to soft touch bilaterally, no visual changes, no facial droop SKIN: Warm, dry, no laceration, no petechiae, no rashes or lesions. Scores NIH Stroke Scale Level of Conciousness: Alert, keenly responsive Ask month/age: Answers both questions correctly. Open/close eyes, close hand: Performs both tasks correctly Best gaze horizontal: Normal Visual burns: No visual loss Facial palsy: Normal symetrical movement Left arm drift: No drift for full 10 sec Right arm drift: No drift for full 10 sec Left leg drift: No drift for full 5 sec Right leg drift: No drift for full 5 sec Limb ataxia: Absent Sensory on face/arms/legs: Normal, no sensory loss Best language: No aphasia, normal Dysarthria: Normal Extinction or inattention: No abnormality Total NIH Stroke scale score: 0 Course Orders Ordered: ED Orders 07/19/21 11:31 CT head/brain wo con Stat Urine Drug Screen, Rapid Stat 07/19/21 11:32 CT cervical spine wo con Stat 07/19/21 11:36 Complete Blood Count AUTO DIFF Stat Comprehensive Metabolic Panel Stat Partial Thromboplastin Time Stat Prothrombin Time INR Stat Troponin & CK Cardiac Panel Stat 07/19/21 13:39 CT angio head and neck Stat 07/19/21 15:00 MR head/brain wo con Stat 07/19/21 15:16 Urinalysis and Microscopic Stat 07/19/21 15:18 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) Stat 07/19/21 15:32 Urine Drug Screen, Rapid Stat 07/19/21 16:11 EKG-12 Lead Stat Discontinued Medications Aspirin (Aspirin 325 Mg Tablet) 325 mg PO NOW ONE Stop: 07/19/21 13:40 Last Admin: 07/19/21 14:13 Dose: Not Given Documented by: ALEJO Aspirin (Aspirin 81 Mg Chew Tab) 324 mg PO NOW ONE Stop: 07/19/21 14:16 Last Admin: 07/19/21 14:21 Dose: 324 mg Documented by: ALEJO Vital Signs Vital signs: Vital Signs - 8 hr 07/19/21 12:23 07/19/21 12:24 07/19/21 12:30 Pulse Rate 63 60 63 Respiratory Rate 22 17 20 Blood Pressure 121/75 136/84 Pulse Oximetry 100 100 100 07/19/21 13:00 07/19/21 13:30 07/19/21 14:00 Pulse Rate 65 63 60 Respiratory Rate 28 H 11 L Blood Pressure 146/88 H Pulse Oximetry 100 100 99 07/19/21 14:30 07/19/21 15:00 07/19/21 15:17 Pulse Rate 63 59 L 58 L Respiratory Rate 14 20 28 H Blood Pressure Pulse Oximetry 100 100 100 07/19/21 15:18 07/19/21 15:30 07/19/21 16:17 Pulse Rate 60 60 58 L Respiratory Rate 22 23 16 Blood Pressure 132/78 117/85 Pulse Oximetry 100 100 100 07/19/21 16:28 07/19/21 16:29 07/19/21 16:30 Pulse Rate 61 61 60 Respiratory Rate 15 16 18 Blood Pressure 123/90 126/85 Pulse Oximetry 100 100 100 07/19/21 17:00 Pulse Rate 60 Respiratory Rate 21 Blood Pressure Pulse Oximetry 100 MDM - Neuro Symptoms/Deficit Lab Data Result diagrams: 07/19/21 11:36 07/19/21 11:36 Labs: Lab Results 07/19/21 07/19/21 07/19/21 Range/Units 11:36 11:36 11:36 WBC 4.6 (4.5-11.0) X10^3/uL RBC 4.13 L (4.5-5.9) X10^6/uL Hgb 13.0 L (13.5-17.5) g/dL Hct 37.9 L (41-53) % MCV 91.8 (80-100) fL MCH 31.5 (26-34) PG MCHC 34.3 (30-36) % RDW 13.2 (11.6-14.8) % Plt Count 246 (150-400) X10^3/uL Neut % (Auto) 46.7 L (50-75) % Lymph % (Auto) 42.1 H (25-40) % [place] % (Auto) 9.9 (3-14) % Eos % (Auto) 0.9 L (2-4) % Baso % (Auto) 0.4 (0-2) % Neut # (Auto) 2100 (9181-8502) /uL Lymph # (Auto) 1900 (9793-1369) /uL [place] # (Auto) 500 (0-900) /uL Eos # (Auto) 0 (0-450) /uL Baso # (Auto) 0 (0-100) /uL PT 11.1 (10.1-12.7) SECONDS INR 1.0 (0.9-1.3) APTT 33 (26.4-36.2) SECONDS Sodium 134 L (137-145) mmol/L Potassium 3.7 (3.4-5.1) mmol/L Chloride 103 (98-107) mmol/L Carbon Dioxide 25 (22-32) mmol/L BUN 14 (9-20) mg/dL Creatinine 0.77 (0.66-1.25) mg/dL Estimated GFR > 60.0 (>60) mL/min BUN/Creatinine Ratio 18.2 (6-22) Glucose 95 (70-100) mg/dL Calcium 8.9 (8.4-10.2) mg/dL Total Bilirubin 0.7 (0.2-1.3) mg/dL AST 26 (17-59) IU/L ALT 16 (<50) IU/L Alkaline Phosphatase 37 L (38-126) U/L Total Creatine Kinase 65 (55-170) U/L CK-MB (CK-2) TNP CK-MB (CK-2) Rel Index TNP Troponin I < 0.012 (0.01-0.034) ng/mL Total Protein 7.2 (6.3-8.2) g/dL Albumin 4.2 (3.5-5.0) g/dL Globulin 3.0 (1.7-4.1) g/dL Albumin/Globulin Ratio 1.4 (1.0-2.8) Urine Color Urine Appearance Urine pH (4.5-8.0) Ur Specific [place] (1.000-1.035) Urine Protein (Negative) Urine Glucose (UA) (Negative) g/dL Urine Ketones (NEGATIVE) Urine Occult Blood (Negative) Urine Nitrate (Negative) Urine Bilirubin (NEGATIVE) Urine Urobilinogen (0.2) E.U./dL Ur Leukocyte Esterase (NEGATIVE) Urine RBC (0-5/HPF) Urine WBC (0-5/HPF) Urine Bacteria (None) Ur Culture Indicated? U Opiates 300ng/mL cut (Negative) Ur Oxycodone Screen (Negative) Urine Methadone Screen (Negative) Ur Barbiturates Screen (Negative) U Tricyclic Antidepress (Negative) Ur Phencyclidine Scrn (Negative) Ur Amphetamines Screen (Negative) U Methamphetamines Scrn (Negative) Ur MDMA Scrn (Ecstasy) (Negative) U Benzodiazepines Scrn (Negative) Urine Cocaine Screen (Negative) U Marijuana (THC) Screen (Negative) SARS-CoV-2 (PCR) (Negative) 07/19/21 07/19/21 07/19/21 Range/Units 15:16 15:18 15:32 WBC (4.5-11.0) X10^3/uL RBC (4.5-5.9) X10^6/uL Hgb (13.5-17.5) g/dL Hct (41-53) % MCV (80-100) fL MCH (26-34) PG MCHC (30-36) % RDW (11.6-14.8) % Plt Count (150-400) X10^3/uL Neut % (Auto) (50-75) % Lymph % (Auto) (25-40) % [place] % (Auto) (3-14) % Eos % (Auto) (2-4) % Baso % (Auto) (0-2) % Neut # (Auto) (6457-2758) /uL Lymph # (Auto) (4820-5891) /uL [place] # (Auto) (0-900) /uL Eos # (Auto) (0-450) /uL Baso # (Auto) (0-100) /uL PT (10.1-12.7) SECONDS INR (0.9-1.3) APTT (26.4-36.2) SECONDS Sodium (137-145) mmol/L Potassium (3.4-5.1) mmol/L Chloride (98-107) mmol/L Carbon Dioxide (22-32) mmol/L BUN (9-20) mg/dL Creatinine (0.66-1.25) mg/dL Estimated GFR (>60) mL/min BUN/Creatinine Ratio (6-22) Glucose (70-100) mg/dL Calcium (8.4-10.2) mg/dL Total Bilirubin (0.2-1.3) mg/dL AST (17-59) IU/L ALT (<50) IU/L Alkaline Phosphatase (38-126) U/L Total Creatine Kinase (55-170) U/L CK-MB (CK-2) CK-MB (CK-2) Rel Index Troponin I (0.01-0.034) ng/mL Total Protein (6.3-8.2) g/dL Albumin (3.5-5.0) g/dL Globulin (1.7-4.1) g/dL Albumin/Globulin Ratio (1.0-2.8) Urine Color Yellow Urine Appearance Clear Urine pH 7.5 (4.5-8.0) Ur Specific [place] <=1.005 (1.000-1.035) Urine Protein Negative (Negative) Urine Glucose (UA) Negative (Negative) g/dL Urine Ketones Negative (NEGATIVE) Urine Occult Blood Trace-lysed (Negative) Urine Nitrate Negative (Negative) Urine Bilirubin Negative (NEGATIVE) Urine Urobilinogen 0.2 (0.2) E.U./dL Ur Leukocyte Esterase Negative (NEGATIVE) Urine RBC None seen (0-5/HPF) Urine WBC None seen (0-5/HPF) Urine Bacteria None seen (None) Ur Culture Indicated? Cult not indicated U Opiates 300ng/mL cut Negative (Negative) Ur Oxycodone Screen Negative (Negative) Urine Methadone Screen Negative (Negative) Ur Barbiturates Screen Negative (Negative) U Tricyclic Antidepress Negative (Negative) Ur Phencyclidine Scrn Negative (Negative) Ur Amphetamines Screen Negative (Negative) U Methamphetamines Scrn Negative (Negative) Ur MDMA Scrn (Ecstasy) Negative (Negative) U Benzodiazepines Scrn Negative (Negative) Urine Cocaine Screen Negative (Negative) U Marijuana (THC) Screen Negative (Negative) SARS-CoV-2 (PCR) Negative (Negative) Imaging Data CT scan - head: Radiologist's Impression: PROCEDURE:? CT HEAD/BRAIN WO CON ? INDICATIONS:? right arm weak, confusion, ataxia ? TECHNIQUE:? Noncontrast 4.5 mm thick angled axial sections acquired from the foramen magnum to the vertex, with coronal and sagittal reformats.? For radiation dose reduction, the following was used:? automated exposure control, adjustment of mA and/or kV according to patient size.? ? COMPARISON:? [facility], CT, HEAD WITHOUT CONTRAST, 05/08/2017, 12:57. ? FINDINGS:? Image quality:? Excellent.? ? CSF spaces:? Basal cisterns are patent.? No extra-axial fluid collections.? The ventricles are symmetric in size and shape.? ? Brain:? No intracranial bleeds or masses.? There is cerebral volume loss for age, with resultant ventricular and sulcal prominence.? There are periventricular and deep white matter chronic small vessel ischemic changes.? There is intracranial internal carotid artery atherosclerosis.? ? Skull and face:? Calvarium and visualized facial bones appear intact, without suspicious lesions.? ? Sinuses:? Visualized sinuses and mastoids are clear.? ? IMPRESSION:? No acute intracranial process. ? Dictated by: Galo Armstrong M.D. on 07/19/2021 at 12:08 ? ? CT - cervical spine: Radiologist's Impression: PROCEDURE:? CT CERVICAL SPINE WO CON ? INDICATIONS:? right arm tingling / cold per pt. h/o prostate ca w/bone met ? TECHNIQUE:? Noncontrast 3 mm thick sections acquired from the skull base to the T4 level.? Sagittal and coronal reformats were then constructed.? For radiation dose reduction, the following was used:? automated exposure control, adjustment of mA and/or kV according to patient size.? ? COMPARISON:? None. ? FINDINGS:? Image quality:? Excellent.? ? Bones:? No acute fracture. Straightening of the normal lordotic curvature.? Grade 1 anterolisthesis of C4 on C5. Multilevel degenerative endplate sclerosis and spurring.? Diffuse facet arthropathy.? Moderate to severe narrowing of the C5-C6 and C6-C7 disc spaces.? Partially visualized lateral curvature of the spine.? No definite focal sclerotic metastasis seen in the cervical spine. ? Soft tissues:? Prevertebral soft tissues are normal in thickness.? No paravertebral hematomas.? No apical pneumothoraces.? ? ? IMPRESSION:? ? No acute fracture identified. ? Spondylitic changes and facet arthropathy as above. ? Dictated by: Galo Armstrong M.D. on 07/19/2021 at 12:19 ?? CTA - brain/neck: Radiologist's Impression: PROCEDURE:? CT ANGIO HEAD AND NECK ? INDICATIONS:? visual problems, right hand coordination ? TECHNIQUE:? Noncontrast images were performed earlier in the day and not repeated.? ? After the administration of intravenous contrast, 1 mm thick sections acquired from the aortic arch through the [place] of [place].? Post-contrast 4.5 mm thick sections then re-acquired from the foramen magnum to the vertex.? 3-dimensional oslfgmr-lwdpwavag-mpycyhpnyb (MIP) and/or volume rendering reformats were acquired of the central intracranial vasculature and neck separately. ? COMPARISON:? [facility], CT, CT CERVICAL SPINE WO CON, 07/19/2021, 11:39.? [facility], CT, CT HEAD/BRAIN WO CON, 07/19/2021, 11:39. ? FINDINGS:? Image quality:? Excellent.? ? BRAIN:? CSF spaces:? Ventricles are normal in size and shape.? Basal cisterns are patent.? No extra-axial fluid collections.? ? Brain:? No midline shift.? No intracranial bleeds or masses.? Leung-white matter interface appears intact.? ? Skull and face:? Calvarium and facial bones appear intact, without suspicious lesions.? Orbits appear normal.? ? Sinuses:? Sinuses and mastoids are clear.? ? HEAD CT ANGIOGRAPHY:? Anterior circulation:? Intracranial internal carotid arteries are normal in size and flow.? The flow within the paired anterior cerebral arteries is normal and symmetric.? The flow within the middle cerebral arteries is normal and symmetric.? The anterior communicating artery is seen.? No aneurysms are seen.? ? Posterior circulation:? The left V4 segment is normal.? The distal right vertebral artery largely terminates in the right posterior inferior cerebellar artery.? There is a normal appearing basilar artery.? Flow within the posterior cerebral arteries is normal and symmetric.? No aneurysms are seen.? ? NECK CT ANGIOGRAPHY:? Carotid system:? The great vessels demonstrate a conventional anatomy as they arise from the aortic arch.? The origins of the common carotid arteries appear patent.? The common carotid arteries demonstrate normal caliber and courses.? The bifurcation regions are both widely patent.? The distal internal carotid arteries demonstrate normal caliber, yet they are highly tortuous distally. ? Posterior circulation:? The origins of the vertebral arteries both appear widely patent.? The more superior extracranial portions of both vertebral arteries also demonstrate normal courses and calibers.? They join to form a normal appearing basilar artery.? ? Soft tissues:? Visualized neck soft tissues demonstrate no suspicious abnormalities.? ? Bones:? No suspicious bony lesions.? Visualized cervical spine appears normally aligned.? Moderate lower cervical spine degenerative changes are seen. ? ? ? IMPRESSION:? No significant intracranial arterial abnormality is seen.? ? No masses or abnormal enhancement can be seen.? ? Within the arteries of the neck, no hemodynamically significant stenosis can be seen. ? ? Any quantitative measurements of stenosis were performed using NASCET criteria.? ? ? Dictated by: Tom Daly M.D. on 07/19/2021 at 13:05 ? ? MR head: Radiologist's Impression: PROCEDURE:? MR HEAD/BRAIN WO CON ? INDICATIONS:? tia ? TECHNIQUE:? Noncontrast axial T1 spin echo, axial T2 fast spin echo, sagittal and axial FLAIR, coronal T2 fast spin echo, axial gradient echo, axial diffusion and ADC through the brain.? ? COMPARISON:? [facility], CT, CT ANGIO HEAD AND NECK, 07/19/2021, 13:47. ? FINDINGS:? Image quality:? Excellent.? ? CSF Spaces:? Basal cisterns are patent.? No extra-axial fluid collections.? Ventricles are normal in size and shape.? ? Brain:? No intracranial masses or hemorrhage.? There is a minimal degree of nonspecific high FLAIR signal foci within the bilateral frontal subcortical white matter as well as the left centrum semiovale.? Leung/white matter interface is normal.? Brainstem appears normal.? Diffusion-weighted images demonstrate no acute ischemic insult.? No chronic ischemic insults.? Normal intravascular flow voids are present.? ? Skull and face:? Calvarium has normal marrow signal.? Orbits appear normal.? ? Sinuses:? Sinuses and mastoids are clear.? ? IMPRESSION:? 1. No acute process.? No recent infarct. 2. Minimal degree of nonspecific white matter disease.? Differential considerations include small vessel ischemic disease, diabetes mellitus, vasculitides, and demyelinating disorders, such as multiple sclerosis. ? ? Dictated by: Mian Breen M.D. on 07/19/2021 at 16:12 ? ECG Data Interpretation: Normal sinus rhythm rate 57 VA interval 162 QRS is [address] changes or T-wave inversions MDM Narrative Medical decision making narrative: Patient at this time has no focal deficits. He has had 3 days sort of episodes progressively seem to be getting little bit worse. Today symptoms lasted roughly 90 minutes. He did not yet start taking aspirin as his PCP recommended that he do. 1500 Dr. Zheng, updated on patient's symptoms and test results. At this time agrees that with negative MRI can be followed up outpatient. He already has orders for echocardiogram and carotid Doppler. I have emphasized to patient to take his aspirin as prescribed he is given aspirin here in the emergency department. I have also educated him and encouraged him to return to the ED at the start of symptoms. He understands that he still is at risk for stroke. I discussed all findings with the patient and spouse, Education has been performed regarding treatment plan, diagnosis, warning signs and symptoms and all concerns have been addressed. Verbally agree with and understood all of the above. Discharge Plan Departure Patient Disposition: Home Clinical Impression: Brain TIA Activity Restrictions/Additional Instructions: *You have been diagnosed with TIA *What to do: You may be having small mini strokes. This does you at risk for large strokes. Aspirin helps prevent stroke. *Continue to take medications as directed Aspirin daily as previously prescribed *Follow up with your primary care provider in 2-3 days *Return to ER if you should have weakness, visual difficulties, difficulty walking speaking confusion or any new, worsening or concerning symptoms Prescriptions: No Action calcium carbonate-vitamin D3 [Oyster Shell Calcium-Vit D3] 500 MG/200 IU tablet 1 tab PO QDAY Qty: 0 0RF cholecalciferol (vitamin D3) 10,000 UNIT tablet 10,000 PO QDAY Qty: 0 0RF [TURMERIC] QDAY Qty: 0 0RF [MAITAKE MUSHROOM] QDAY Qty: 0 0RF [CATCLAW TEA] Qty: 0 0RF [TINC OF [place] FUNGUS] Qty: 0 0RF [PROBIOTIC] 1 cap Q AM Qty: 0 0RF olive leaf extract 250 MG capsule 250 mg PO QDAY Qty: 0 0RF [ASHTANGA] QDAY Qty: 0 0RF vitamin B complex [B Complex-Vitamin B12] 1 EACH tablet 1 tab PO QDAY Qty: 0 0RF [HI CBD OIL] Qty: 0 0RF acyclovir 400 MG tablet 400 mg PO BID Qty: 60 2RF sulfamethoxazole-trimethoprim [Bactrim DS] 800-160 mg Tablet 1 tab PO Q12H Qty: 14 0RF sildenafil 50 mg Tablet 50 mg PO PRN PRN (Reason: Sexual Activity) Qty: 30 2RF Rx Instructions: administer 30 minutes to 4 hours before activity Referrals: Marco Zheng MD [Primary Care Provider] -
--- NOTE | 2021-07-19 13:39 | DI.CT.S_ITS ---
PROCEDURE: CT ANGIO HEAD AND NECK INDICATIONS: visual problems, right hand coordination TECHNIQUE: Noncontrast images were performed earlier in the day and not repeated. After the administration of intravenous contrast, 1 mm thick sections acquired from the aortic arch through the [place] of [place]. Post-contrast 4.5 mm thick sections then re-acquired from the foramen magnum to the vertex. 3-dimensional gwryutn-jfcvjblui-rjhydymabi (MIP) and/or volume rendering reformats were acquired of the central intracranial vasculature and neck separately. COMPARISON: [facility], CT, CT CERVICAL SPINE WO CON, 07/19/2021, 11:39. [facility], CT, CT HEAD/BRAIN WO CON, 07/19/2021, 11:39. FINDINGS: Image quality: Excellent. BRAIN: CSF spaces: Ventricles are normal in size and shape. Basal cisterns are patent. No extra-axial fluid collections. Brain: No midline shift. No intracranial bleeds or masses. Leung-white matter interface appears intact. Skull and face: Calvarium and facial bones appear intact, without suspicious lesions. Orbits appear normal. Sinuses: Sinuses and mastoids are clear. HEAD CT ANGIOGRAPHY: Anterior circulation: Intracranial internal carotid arteries are normal in size and flow. The flow within the paired anterior cerebral arteries is normal and symmetric. The flow within the middle cerebral arteries is normal and symmetric. The anterior communicating artery is seen. No aneurysms are seen. Posterior circulation: The left V4 segment is normal. The distal right vertebral artery largely terminates in the right posterior inferior cerebellar artery. There is a normal appearing basilar artery. Flow within the posterior cerebral arteries is normal and symmetric. No aneurysms are seen. NECK CT ANGIOGRAPHY: Carotid system: The great vessels demonstrate a conventional anatomy as they arise from the aortic arch. The origins of the common carotid arteries appear patent. The common carotid arteries demonstrate normal caliber and courses. The bifurcation regions are both widely patent. The distal internal carotid arteries demonstrate normal caliber, yet they are highly tortuous distally. Posterior circulation: The origins of the vertebral arteries both appear widely patent. The more superior extracranial portions of both vertebral arteries also demonstrate normal courses and calibers. They join to form a normal appearing basilar artery. Soft tissues: Visualized neck soft tissues demonstrate no suspicious abnormalities. Bones: No suspicious bony lesions. Visualized cervical spine appears normally aligned. Moderate lower cervical spine degenerative changes are seen. IMPRESSION: No significant intracranial arterial abnormality is seen. No masses or abnormal enhancement can be seen. Within the arteries of the neck, no hemodynamically significant stenosis can be seen. Any quantitative measurements of stenosis were performed using NASCET criteria. Dictated by: Tom Daly M.D. on 07/19/2021 at 13:05 Approved by: Tom Daly M.D. on 07/19/2021 at 13:08
[2021-07-19] MEDS: ASPIRIN 81 MG CHEW TAB 324 MG PO (14:21)
--- NOTE | 2021-07-19 15:00 | DI.MRI.S_ITS ---
PROCEDURE: MR HEAD/BRAIN WO CON INDICATIONS: tia TECHNIQUE: Noncontrast axial T1 spin echo, axial T2 fast spin echo, sagittal and axial FLAIR, coronal T2 fast spin echo, axial gradient echo, axial diffusion and ADC through the brain. COMPARISON: [facility], CT, CT ANGIO HEAD AND NECK, 07/19/2021, 13:47. FINDINGS: Image quality: Excellent. CSF Spaces: Basal cisterns are patent. No extra-axial fluid collections. Ventricles are normal in size and shape. Brain: No intracranial masses or hemorrhage. There is a minimal degree of nonspecific high FLAIR signal foci within the bilateral frontal subcortical white matter as well as the left centrum semiovale. Leung/white matter interface is normal. Brainstem appears normal. Diffusion-weighted images demonstrate no acute ischemic insult. No chronic ischemic insults. Normal intravascular flow voids are present. Skull and face: Calvarium has normal marrow signal. Orbits appear normal. Sinuses: Sinuses and mastoids are clear. IMPRESSION: 1. No acute process. No recent infarct. 2. Minimal degree of nonspecific white matter disease. Differential considerations include small vessel ischemic disease, diabetes mellitus, vasculitides, and demyelinating disorders, such as multiple sclerosis. Dictated by: Mian Breen M.D. on 07/19/2021 at 16:12 Approved by: Mian Breen M.D. on 07/19/2021 at 16:14
[2021-07-19 15:25] LABS: Appearance Urine UA CLEAR; Bilirubin Urine UA NEGATIVE (NEGATIVE); Color Urine UA YELLOW; Glucose Urine UA NEGATIVE (Negative); Ketones Urine UA NEGATIVE (NEGATIVE); Leukocyte Esterase Urine UA NEGATIVE (NEGATIVE); Nitrite Urine UA NEGATIVE (Negative); Occult Blood Urine UA TRACE-LYSED (Negative); Protein Urine UA NEGATIVE (Negative); Specific Gravity Urine UA <=1.005 (1.000-1.035); Urobilinogen Urine UA 0.2 E.U./dL (0.2); pH Urine UA 7.5 (4.5-8.0)
[2021-07-19 15:34] LABS: Bacteria Urine None Seen; Culture Indicated Urine Cult Not Indicated; RBC Urine None Seen (0-5/HPF); WBC Urine None Seen (0-5/HPF)
[2021-07-19 15:37] LABS: Ur Creatinine Normal (Normal); Ur Specific Gravity Normal (Normal); Urine Cocaine Negative (Negative); Urine Tetrahydrocannabinol Negative (Negative); Urine pH Normal (Normal)
[2021-07-19 15:38] LABS: UR Morphine/Opiate cutoff 300 Negative (Negative); Urine Amphetamines Negative (Negative); Urine Barbiturates Negative (Negative); Urine Benzodiazepines Negative (Negative); Urine MDMA Negative (Negative); Urine Methadone Negative (Negative); Urine Methamphetamines Negative (Negative); Urine Oxycodone Negative (Negative); Urine Phencyclidine Negative (Negative); Urine Tricyclic Antidepressant Negative (Negative)
[2021-07-19 16:31] LABS: COVID19 - ADMIT (NP swab/PCR) Negative (Negative)
== END 2021-07-19 17:25 | disposition home or self-care (01) ==
PROVIDERS: Emergency Provider Emergency Medicine; PCP Family Medicine; Referring Provider Family Medicine
DX: G45.9 Transient cerebral ischemic attack, unspecified (principal); C61 Malignant neoplasm of prostate; C79.51 Secondary malignant neoplasm of bone; R20.9 Unspecified disturbances of skin sensation; H53.8 Other visual disturbances
CPT/HCPCS: 36415; 70450; 70496; 70498; 70551; 72125; 80053; 80305; 81001; 82550; 84484; 85025; 85610; 85730; 87635; 93005; 93010; 99285; C9803; Q9967

== ENCOUNTER → 2021-08-22 14:58 | Outpatient (CLI) | payer OTHER, SELFPAY ==
--- NOTE | 2021-08-22 15:01 | DI.ECHO.S_ITS ---
[place] [facility]---------+ [facility] +---------+ : : [address] : : : : [id number] : : : : Phone: [phone] Echocardiogram Report + + :Name: ALFONSO RAMESH Study Date: 08/22/2021 Height: 67 in : :[facility] ReadingLocation: Weight: 170 lb : : Gender: Male BSA: 1.9 m2 : :: 1960 Age: 60 yrs BP: 113/68 mmHg: :Reason For Study: SYNCOPE AND COLLAPSE : :Ordering Physician: FAB, : :LAM Hartley Performed By: Carolyn Fernandez : :Referring: LAM SANON : + + Interpretation Summary Possibly bicuspid aortic valve. The ejection fraction is estimated to be 60-65%. The right ventricle is normal in size and function. There is mild aortic regurgitation. There is trace tricuspid regurgitation. Procedure: A two-dimensional transthoracic echocardiogram with color flow and Doppler was performed. The study quality was technically adequate. There is no prior echocardiogram noted for this patient. Left Ventricle: The left ventricle is normal in size and wall thickness. The ejection fraction is estimated to be 60-65%. Left ventricular wall motion is normal. Right Ventricle: The right ventricle is normal in size and function. Atria: The left atrial size is normal. Right atrial size is normal. There is no Doppler evidence for an interatrial shunt. Mitral Valve: The mitral valve is normal in structure and function. There is no mitral regurgitation noted. Aortic Valve: There is mild aortic valve sclerosis. The aortic valve is slightly calcified. There is no aortic valve stenosis. There is mild aortic regurgitation. Tricuspid Valve: The tricuspid valve is normal in structure and function. There is trace tricuspid regurgitation. Pulmonary artery pressures cannot be estimated because of the lack of a measurable TR jet velocity but the IVC suggests a CVP of around 3 mmHg. Pulmonic Valve: The pulmonic valve leaflets are thin and pliable; valve motion is normal. There is mild to moderate pulmonic regurgitation. Great Vessels: The aortic root is normal size. The ascending aorta is mild- moderately enlarged. The IVC is of normal diameter and collapses greater than 50% with a sniff. This suggests a low right atrial pressure of 3 mm Hg. Pericardium/ Pleura There is no pericardial effusion. There is no pleural effusion. MMode/2D Measurements & Calculations LVIDd: 4.6 cm LVOT diam: 2.4 cm LVIDs: 3.1 cm Ao root diam: 3.8 cm FS: 32.3 % asc Aorta Diam: 3.9 cm IVSd: 0.97 cm Ao Arch Diam (Prox Trans): 3.5 cm LVPWd: 0.62 cm LV iverson. diameter/BSA (cm/m^2): 2.4 LV sys. diameter/BSA (cm/m^2): 1.7 LA A2 area: 19.7 cm2 RA long axis: 4.6 cm LA A4 area: 13.2 cm2 RA area: 12.6 cm2 LA length (vol): 5.0 cm RA vol: 29.5 ml LA vol: 44.2 ml RA : 15.7 ml/m2 LA vol index: 23.4 ml/m2 IVC diam: 1.1 cm RVD1 (basal): 2.8 cm TAPSE: 2.0 cm Doppler Measurements & Calculations Ao V2 max: 181.4 cm/sec LVOT Max Edwin: 96.3 cm/sec Ao V2 mean: 124.7 cm/sec LV V1 max P.7 mmHg Ao max P.2 mmHg LV V1 VTI: 18.6 cm Ao mean P.9 mmHg MARJAN(I,D): 2.6 cm2 Ao V2 VTI: 32.3 cm MARJAN(V,D): 2.4 cm2 sev ratio: 0.58 MARJAN indexed to BSA (cm^2/m^2): 1.4 AI P1/2t: 986.8 msec AI dec slope: 127.9 cm/sec2 MV E max edwin: 43.1 cm/sec PA V2 max: 115.1 cm/sec MV A max edwin: 67.9 cm/sec PA V2 mean: 78.4 cm/sec MV E/A: 0.63 PA mean P.8 mmHg Med Peak E' Edwin: 3.8 cm/sec PA pr(Accel): 32.8 mmHg E/E' med: 11.4 Lat Peak E' Edwin: 8.1 cm/sec E/E' lat: 5.3 E/e' average: 8.4 MV dec time: 0.26 sec SV(LVOT): 84.6 ml Reading Physician:04:51 PM
--- NOTE | 2021-08-22 15:01 | DI.US.S_ITS ---
PROCEDURE: US CAROTID DOPPLER BI INDICATIONS: SYNCOPE. HYPERLIPIDEMIA. TECHNIQUE: Color and pulse Doppler interrogation was performed of both carotid systems, with image documentation and velocity measurements. COMPARISON: None. FINDINGS: Stenosis calculations are based on SRU (Society of Radiologists in Ultrasound) criteria. Right side: Brachial blood pressure: 113/68 mm Hg. Common carotid artery peak systolic velocity: 160 cm/sec. Internal carotid artery peak systolic velocity: 102 cm/sec. Internal carotid artery end diastolic velocity: 41 cm/sec. External carotid artery peak systolic velocity: 86 cm/sec. ICA/CCA peak systolic ratio: 0.9 . Leung scale imaging description: Mild intimal wall thickening. Percent internal carotid artery stenosis: Less than 50% . Vertebral artery: Flow direction is antegrade. Left side: Brachial blood pressure: 123/73 mm Hg. Common carotid artery peak systolic velocity: 125 cm/sec. Internal carotid artery peak systolic velocity: 87 cm/sec. Internal carotid artery end diastolic velocity: 33 cm/sec. External carotid artery peak systolic velocity: 100 cm/sec. ICA/CCA peak systolic ratio: 0.7 . Leung scale imaging description: Mild soft plaque. Percent internal carotid artery stenosis: Less than 50% . Vertebral artery: Flow direction is antegrade. IMPRESSION: Less than 50% bilateral internal carotid artery stenosis. Dictated by: Vinod Wise [facility] Interpreted: Terrie Anthony MD on 08/22/2021 at 15:49 Transcribed by: YESSY on 08/22/2021 at 15:50 Approved by: Terrie Anthony M.D. on 08/22/2021 at 17:35
== END ==
PROVIDERS: PCP Family Medicine; Referring Provider Family Medicine; Visit Provider Family Medicine
DX: I65.23 Occlusion and stenosis of bilateral carotid arteries (principal); I35.1 Nonrheumatic aortic (valve) insufficiency; I37.1 Nonrheumatic pulmonary valve insufficiency; I77.89 Other specified disorders of arteries and arterioles; R55 Syncope and collapse; E78.2 Mixed hyperlipidemia
CPT/HCPCS: 93306; 93880

== ENCOUNTER 2021-12-09 15:45 | Emergency (ER) | payer OTHER, SELFPAY ==
[2021-12-09] VITALS (10 sets, daily range): BP systolic 101–125; BP diastolic 68–74; PULSE 62–71; RESP 12–18; TEMP 36.3; O2SAT 100; BMI 26.6
[2021-12-09] MEDS: SODIUM CHLORIDE 0.9% 1,000 ML 1000 ML IV (16:44)
--- NOTE | 2021-12-09 16:47 | ED_ITS ---
HPI - Abdominal Pain General Chief Complaint: Abdominal Pain Stated Complaint: Rt Lower ABD pain, diarrhea, gas, nausea Time Seen by Provider: 12/09/21 16:15 History of Present Illness HPI narrative: 61-year-old male nonsmoker with history of TIA and prostate cancer with Mets to the bones presents with quadrant abdominal pain and cramping that seems to be worse with motion and eating. He has had both diarrhea and constipation. [facility] involving his prostate cancer. He denies any obvious radiation of his pain. He denies recent travel, changes in medications or diet, or antibiotics. He denies any urinary complaints such as dysuria, frequency or urgency. Related Data Home Medications Medication Instructions Recorded Confirmed [MAITAKE MUSHROOM] QDAY #0 11/21/16 [TURMERIC] QDAY #0 11/21/16 calcium carbonate 500 mg-vitamin 1 tab PO QDAY #0 11/21/16 05/26/18 D3 5 mcg (200 unit) tablet (Oyster Shell Calcium-Vitamin D3) cholecalciferol (vitamin D3) 250 10,000 PO QDAY #0 11/21/16 mcg (10,000 unit) tablet [CATCLAW TEA] #0 12/10/16 [TINC OF [place] FUNGUS] #0 12/10/16 [PROBIOTIC] 1 cap Q AM #0 12/22/16 olive leaf extract 250 mg capsule 250 mg PO QDAY #0 12/22/16 05/26/18 [ASHTANGA] QDAY #0 01/07/17 vitamin B complex (B 1 tab PO QDAY #0 02/18/17 05/26/18 Complex-Vitamin B12) [HI CBD OIL] #0 03/13/17 Previous Rx's Medication Instructions Recorded acyclovir 400 mg tablet 400 mg PO BID #60 tab 12/25/17 sulfamethoxazole 800 1 tab PO Q12H #14 tab 01/05/18 mg-trimethoprim 160 mg tablet (Bactrim DS) sildenafil 50 mg tablet 50 mg PO PRN PRN #30 tab 01/15/18 amoxicillin 500 mg-potassium 1 tab PO BID #20 tab 12/09/21 clavulanate 125 mg tablet (Augmentin) ondansetron 4 mg disintegrating 4 mg PO TID-QID PRN #10 tab 12/09/21 tablet Allergies Allergy/AdvReac Type Severity Reaction Status Date / Time No Known Drug Allergies Allergy Unknown Verified 07/19/21 11:30 [NO KNOWN DRUG ALLERGIES] Patient History Social History household members: children Smoking Status: Never smoker Smoking Status: Never smoker Substance Use Type: does not use Exam Narrative Exam Narrative: GENERAL: [61] year old patient appears stated age. Well-developed patient, in mild distress. HEAD: Atraumatic. Normocephalic. EYES: Pupils equal round and reactive. Extraocular motions intact. No scleral icterus. No injection or drainage. ENT: Nose without bleeding, purulent drainage. Throat without erythema, tonsillar hypertrophy or exudate. Airway patent. NECK: Trachea midline. Non tender CARDIOVASCULAR: Regular rate and rhythm without murmurs, gallops, or rubs. RESPIRATORY: Clear to auscultation. Breath sounds equal bilaterally. No wheezes, rales, or rhonchi. GASTROINTESTINAL: Abdomen soft, right lower quadrant pain, nondistended. EXTREMITIES: No edema or joint tenderness. BACK: Nontender without deformity or crepitance. No flank tenderness. NEURO: AOx3. SKIN: No rash or erythema of visible areas Initial Vital Signs Initial Vital Signs: Vital Signs Temperature 97.3 F L 12/09/21 15:55 Pulse Rate 66 12/09/21 15:55 Respiratory Rate 18 12/09/21 15:55 Blood Pressure 111/71 12/09/21 15:55 Pulse Oximetry 100 12/09/21 15:55 Course Orders Ordered: ED Orders 12/09/21 16:16 GI Panel (Film Array) Stat 12/09/21 16:40 Complete Blood Count AUTO DIFF Stat Comprehensive Metabolic Panel Stat Lipase Stat 12/09/21 18:05 CT abdomen pelvis w con Stat 12/09/21 18:44 Urine Microscopic Stat Discontinued Medications Sodium Chloride (Normal Saline 0.9%) 1,000 mls @ 1,000 mls/hr IV BOLUS ONE Stop: 12/09/21 17:15 Last Infusion: 12/09/21 17:53 Dose: 0 mls/hr Documented by: Admin: 12/09/21 16:44 Dose: 1,000 mls/hr Documented by: ERNESTO Vital Signs Vital signs: Vital Signs - 8 hr 12/09/21 15:55 12/09/21 16:47 12/09/21 16:49 Temperature 97.3 F L Pulse Rate 66 64 63 Respiratory Rate 18 12 Blood Pressure 111/71 101/68 Pulse Oximetry 100 100 100 12/09/21 17:09 12/09/21 17:30 12/09/21 18:00 Temperature Pulse Rate 62 62 Respiratory Rate Blood Pressure 114/71 Pulse Oximetry 100 100 12/09/21 18:33 12/09/21 18:34 12/09/21 18:59 Temperature Pulse Rate 71 65 67 Respiratory Rate Blood Pressure 125/69 Pulse Oximetry 100 100 100 12/09/21 19:00 Temperature Pulse Rate Respiratory Rate Blood Pressure 111/74 Pulse Oximetry MDM - Abdominal Pain Lab Data Result diagrams: 12/09/21 16:40 12/09/21 16:40 Labs: Lab Results 12/09/21 12/09/21 Range/Units 16:40 16:40 WBC 7.3 (4.5-11.0) X10^3/uL RBC 4.01 L (4.5-5.9) X10^6/uL Hgb 12.2 L (13.5-17.5) g/dL Hct 36.1 L (41-53) % MCV 90.0 (80-100) fL MCH 30.5 (26-34) PG MCHC 33.9 (30-36) % RDW 13.5 (11.6-14.8) % Plt Count 215 (150-400) X10^3/uL Neut % (Auto) 64.8 (50-75) % Lymph % (Auto) 24.9 L (25-40) % Andrews % (Auto) 9.3 (3-14) % Eos % (Auto) 0.7 L (2-4) % Baso % (Auto) 0.3 (0-2) % Neut # (Auto) 4700 (4510-9169) /uL Lymph # (Auto) 1800 (6675-9006) /uL Andrews # (Auto) 700 (0-900) /uL Eos # (Auto) 100 (0-450) /uL Baso # (Auto) 0 (0-100) /uL Sodium 136 L (137-145) mmol/L Potassium 3.7 (3.4-5.1) mmol/L Chloride 103 (98-107) mmol/L Carbon Dioxide 24 (22-32) mmol/L BUN 21 H (9-20) mg/dL Creatinine 0.89 (0.66-1.25) mg/dL Estimated GFR > 60 (>60) mL/min BUN/Creatinine Ratio 23.6 H (6-22) Glucose 103 (80-110) mg/dL Calcium 8.4 (8.4-10.2) mg/dL Total Bilirubin 0.3 (0.2-1.3) mg/dL AST 24 (17-59) IU/L ALT 16 (<50) IU/L Alkaline Phosphatase 53 (38-126) U/L Total Protein 7.3 (6.3-8.2) g/dL Albumin 4.1 (3.5-5.0) g/dL Globulin 3.2 (1.7-4.1) g/dL Albumin/Globulin Ratio 1.3 (1.0-2.8) Lipase 66 (23-300) U/L Point of care testing: Urine Dip Bedside Urine Glucose Negative Bedside Urine Bilirubin - Negative Bedside Urine Ketone - Negative Urine Specific Stanford 1.010 Bedside Urine Occult Blood ++ Bedside Urine pH 6 Bedside Urine Protein - Negative Bedside Urine Urobilinogen - Negative Bedside Urine Nitrite - Negative Bedside Urine Leukocytes - Negative Esterase Imaging Data CT scan - abdomen/pelvis: Radiologist's Impression: Chart Viewer Diagnostics Subcategory All Activity ??:?? All Time ??:?? All Subcategories Filter Laboratory Imaging Microbiology Pathology Blood Bank Tests Cardiovascular Other Specialty DATE TYPE STATUS REF RANGE/AUTHOR Hx Today 18:05 Abdomen/Pelvis CT Signed Shemar Tucker 08/22/21 15:01 Echocardiogram Ultrasound Signed Ilir Ball 08/22/21 15:01 Carotid Doppler Study Signed Terrie Anthony 07/19/21 15:00 Brain MRI Signed Mian Breen 07/19/21 13:39 Head/Neck CTA Signed Tom Daly 07/19/21 11:[address] Signed Galo Armstrong 07/19/21 11:[address] Signed Galo Armstrong 06/27/21 09:33 Bone Densitometry ? 01/25/21 00:00 Chest X-Ray Signed Abisai Benedict 03/18/18 07:19 Telemetry Strips ? 12/31/17 15:20 Chest/Abdomen/Pelvis CT Signed Galo Armstrong 08/19/17 00:00 Radiology - Historical ? 08/19/17 00:00 Radiology - Historical ? 05/08/17 12:53 Radiology - Historical ? 05/08/17 12:53 Radiology - Historical ? Jasper Mcelroy ED 61, M?1960 MRN#? [id number] REG ER,?Main ED??R08?? 170.18cm 77.111kg BMI: 26.6kg/m? Abdominal Pain Acc#? [id number] Resus Status Not Ordered No Hx Avail Special Indicators No Data to Display Home Meds Not Confirmed Prescription Monitoring Program MEDICATIONS (INSTRUCTIONS) LAST TAKEN Active ??[ASHTANGA] ??QDAY#0 ??[CATCLAW TEA] ??#0 ??[HI CBD OIL] ??#0 ??[MAITAKE MUSHROOM] ??QDAY#0 ??[PROBIOTIC] ??1 capQ AM#0 ??[TINC OF [place]AG[place] FUNGUS] ??#0 ??[TURMERIC] ??QDAY#0 ??acyclovir ??400 mgPOBID#60 tab ??calcium carbonate-vitamin D3 [Oyster Shell Calcium-Vit D3] ??1 tabPOQDAY#0 ??cholecalciferol (vitamin D3) ??10,000POQDAY#0 ??olive leaf extract ??250 mgPOQDAY#0 ??sildenafil ??50 mgPOPRNPRN#30 tab ??sulfamethoxazole-trimethoprim [Bactrim DS] ??1 kxeTGB95O#14 tab ??vitamin B complex [B Complex-Vitamin B12] ??1 tabPOQDAY#0 ?Not Included in Conflicts Allergies No Known Drug Allergies (NO KNOWN DRUG ALLERGIES) Problems ? ONSET Prostate cancer metastatic to bone BPPV (benign paroxysmal positional vertigo) Vital Signs Today 19:00 BP 111/74? Diagnostics Reports Jasper Mcelroy??61??M??1960 ? Allergy/Adv: No Known Drug Allergies Close Abdomen/Pelvis CT (Signed) Shemar Tucker - 12/09/21 Echocardiogram Ultrasound (Signed) Ilir Ball - 08/22/21 Carotid Doppler Study (Signed) Terrie Anthony - 08/22/21 Brain MRI (Signed) NuhaAddymatilda - 07/19/21 Head/Neck CTA (Signed) Tom Daly - 07/19/[address] (Signed) Galo Armstrong - 07/19/[address] (Signed) Galo Armstrong - 07/19/21 Bone Densitometry 06/27/21 Chest X-Ray (Signed) Abisai Benedict - 01/25/21 Telemetry Strips 03/18/18 Chest/Abdomen/Pelvis CT (Signed) Galo Armstrong - 12/31/17 Radiology - Historical 08/19/17 Radiology - Historical 08/19/17 Radiology - Historical 05/08/17 Radiology - Historical 05/08/17 Launch?[place] [address] CT Scan Report Signed Patient: Jasper Mcelroy MR#: [id number] : 1960 Acct:[id number] Age/Sex: 61 / M Date of Service: 12/09/21 Loc: ED Accession Number: [id number] ?? Procedure: CT abdomen pelvis w con Ordering Provider: James Wilde D.O. PROCEDURE:? CT ABDOMEN PELVIS W CON ? INDICATIONS:? severe RLQ pain, prostate CA with bone mets ? TECHNIQUE:? After the administration of oral and IV contrast, axial sections were acquired from the lung bases to the pubic symphysis.? Coronal and sagittal reformats were performed.? For radiation dose reduction, the following was used:? automated exposure control, adjustment of mA and/or kV according to patient size. ? COMPARISON:? [facility], CT, CT CHEST ABD PEL W CON, 12/31/2017, 16:19. ? FINDINGS:? Image quality:? Excellent.? ? Lung bases:? No pleural effusion.? ? Heart:? Mild aortic valvular calcification. ? ? ABDOMEN: Liver:? No focal lesion. Gallbladder:? Not distended. Biliary ducts:? Unremarkable.? ? Pancreas:? Unremarkable.? ? Spleen:? Unremarkable.? ? Adrenal Glands:? No nodule. Kidneys and Ureters:? No hydronephrosis.? Right mid kidney nonobstructing calculus measuring 0.6 cm.? Small simple appearing left renal cyst.? ? Stomach and Bowel:? Mild inflammatory change about the cecum.? There is thickening at the cecum.? The appendix is not dilated and has air within its lumen.? No small bowel obstruction.? A few colonic diverticuli. Peritoneum:? No abnormal intraperitoneal fluid.? No free air.? ? Ventral Wall: ? Tiny umbilical hernia. Abdominal Nodes:? No retroperitoneal or mesenteric adenopathy by size criteria.? Vessels:? Aorta and inferior vena cava are normal in size.? ? PELVIS: Pelvic Organs:? Small prostate calcifications.? ? Bladder:? No stones. Pelvic Nodes: No enlarged lymph nodes.? Miscellaneous: No inguinal hernias are seen.? Small focus of subcutaneous thickening at the right buttocks, (258), new.? This could be seen in subcutaneous injection. ? Bones:? Sclerosis at the right inferior pubic ramus, (), unchanged.? No new lesion seen.? L3 Schmorl's node, unchanged. ? ? IMPRESSION:? 1. Abnormal thickening and stranding surrounding the cecum.? This is most suggestive of a colitis.? It is difficult to exclude underlying mass.? Recommend colonoscopy if not recently performed. ? 2. The appendix is not dilated. ? 3. Similar sclerosis at the right inferior pubic ramus consistent with osseous metastasis. ? 4. Small focus of subcutaneous thickening at the right buttocks.? This could be due to subcutaneous injection or contusion.? Less likely mass given its wispy appearance. ? Comment: Findings were discussed with Dr. James Wilde at the time of dictation. ? ? Dictated by: Shemar Tucker M.D. on 12/09/2021 at 19:03 ? ? Approved by: Shemar Tucker M.D. on 12/09/2021 at 19:16 ? [facility] Narrative Medical decision making narrative: Patient has a very reassuring history physical exam, labs demonstrate no sign of infection, abdomen is tender but soft. His pain is well controlled, he has no vomiting. Imaging suggests colitis, no signs of appendix involvement, abscess, perforation or obstruction. Patient given extensive return precautions and questions answered to his apparent satisfaction Discharge Plan Departure Patient Disposition: Home Clinical Impression: Colitis Instructions: DI for Colitis Activity Restrictions/Additional Instructions: *You have been diagnosed with [colitis of cecum. As we discussed your labs and imaging are otherwise very reassuring and there is no evidence of abscess, perforation, obstruction or appendicitis. *What to do: *Please continue to take your regular medications as directed. [x ] New medication prescriptions sent to your pharmacy: [[facility] in [place] ] [ ] New medication written as a paper prescription [ ] No new medications given *Please follow up with your primary care provider in 2-3 days, call for an appointment. Let them know you were seen in the Emergency Department and that we ask that you be seen in follow up. We will electronically transmit a record of today's note if your PCP is in our system * as we discussed, follow-up with our general surgeons is very appropriate as you will likely need a colonoscopy to ensure resolution of this likely infection, though no mass was noted on imaging there is a slight chance of an underlying mass causing this appearance which could be evaluated by colonoscopy if the surgeons see it fit *If you do not have a primary care provider please contact the [facility] Resource line at [phone]. They will ask some questions about your medical history and help get you set up with a doctor in the community. *Return to Emergency Department if you should have any new, worsening or concerning symptoms, such as [fever greater than 101 F, shaking chills, worsening pain, persistent vomiting or other bothersome symptoms] Prescriptions: New amoxicillin-pot clavulanate [Augmentin] 500-125 mg tablet 1 tab PO BID Qty: 20 0RF ondansetron 4 mg tablet,disintegrating 4 mg PO TID-QID PRN (Reason: nausea and vomiting) Qty: 10 0RF No Action calcium carbonate-vitamin D3 [Oyster Shell Calcium-Vit D3] 500 MG/200 IU tablet 1 tab PO QDAY Qty: 0 0RF cholecalciferol (vitamin D3) 10,000 UNIT tablet 10,000 PO QDAY Qty: 0 0RF [TURMERIC] QDAY Qty: 0 0RF [MAITAKE MUSHROOM] QDAY Qty: 0 0RF [CATCLAW TEA] Qty: 0 0RF [TINC OF CHAGA FUNGUS] Qty: 0 0RF [PROBIOTIC] 1 cap Q AM Qty: 0 0RF olive leaf extract 250 MG capsule 250 mg PO QDAY Qty: 0 0RF [ASHTANGA] QDAY Qty: 0 0RF vitamin B complex [B Complex-Vitamin B12] 1 EACH tablet 1 tab PO QDAY Qty: 0 0RF [HI CBD OIL] Qty: 0 0RF acyclovir 400 MG tablet 400 mg PO BID Qty: 60 2RF sulfamethoxazole-trimethoprim [Bactrim DS] 800-160 mg Tablet 1 tab PO Q12H Qty: 14 0RF sildenafil 50 mg Tablet 50 mg PO PRN PRN (Reason: Sexual Activity) Qty: 30 2RF Rx Instructions: administer 30 minutes to 4 hours before activity Referrals: Og Gu MD [Physician] - Marco Zheng MD [Primary Care Provider] -
[2021-12-09 16:54] LABS: Add Manual Diff / Slide Review NO; Basophils Absolute Auto 0 /uL (0-100); Basophils Percent Auto 0.3 % (0-2); Eosinophils Absolute Auto 100 /uL (0-450); Eosinophils Percent Auto 0.7 % (2-4); Hematocrit 36.1 % (41-53); Hemoglobin 12.2 g/dL (13.5-17.5); Lymphocytes Absolute Auto 1800 /uL (1100-4500); Lymphocytes Percent Auto 24.9 % (25-40); Mean Corpuscular HGB Conc 33.9 % (30-36); Mean Corpuscular Hemoglobin 30.5 PG (26-34); Monocytes Absolute Auto 700 /uL (0-900); Monocytes Percent Auto 9.3 % (3-14); Neutrophils Absolute Auto 4700 /uL (1500-7000); Neutrophils Percent Auto 64.8 % (50-75); Platelet Count 215 X10^3/uL (150-400); Red Blood Cell Count 4.01 X10^6/uL (4.5-5.9); Red Cell Distribution Width 13.5 % (11.6-14.8); White Blood Cell Count 7.3 X10^3/uL (4.5-11.0)
[2021-12-09 17:08] LABS: Alanine Aminotransferase 16 IU/L (<50); Albumin 4.1 g/dL (3.5-5.0); Albumin Globulin Ratio 1.3 (1.0-2.8); Alkaline Phosphatase 53 U/L (38-126); Aspartate Aminotransferase 24 IU/L (17-59); BUN Creatinine Ratio 23.6 (6-22); Bilirubin Total 0.3 mg/dL (0.2-1.3); Blood Urea Nitrogen 21 mg/dL (9-20); Calcium 8.4 mg/dL (8.4-10.2); Carbon Dioxide 24 mmol/L (22-32); Chloride 103 mmol/L (98-107); Estimated Glomerular Filt Rate > 60 mL/min (>60); Globulin 3.2 g/dL (1.7-4.1); Glucose 103 mg/dL (80-110); HEMOLYSIS < 15 (0-50); Lipase 66 U/L (23-300); Potassium 3.7 mmol/L (3.4-5.1); Sodium 136 mmol/L (137-145); Total Protein 7.3 g/dL (6.3-8.2)
--- NOTE | 2021-12-09 18:05 | DI.CT.S_ITS ---
PROCEDURE: CT ABDOMEN PELVIS W CON INDICATIONS: severe RLQ pain, prostate CA with bone mets TECHNIQUE: After the administration of oral and IV contrast, axial sections were acquired from the lung bases to the pubic symphysis. Coronal and sagittal reformats were performed. For radiation dose reduction, the following was used: automated exposure control, adjustment of mA and/or kV according to patient size. COMPARISON: [facility], CT, CT CHEST ABD PEL W CON, 12/31/2017, 16:19. FINDINGS: Image quality: Excellent. Lung bases: No pleural effusion. Heart: Mild aortic valvular calcification. ABDOMEN: Liver: No focal lesion. Gallbladder: Not distended. Biliary ducts: Unremarkable. Pancreas: Unremarkable. Spleen: Unremarkable. Adrenal Glands: No nodule. Kidneys and Ureters: No hydronephrosis. Right mid kidney nonobstructing calculus measuring 0.6 cm. Small simple appearing left renal cyst. Stomach and Bowel: Mild inflammatory change about the cecum. There is thickening at the cecum. The appendix is not dilated and has air within its lumen. No small bowel obstruction. A few colonic diverticuli. Peritoneum: No abnormal intraperitoneal fluid. No free air. Ventral Wall: Tiny umbilical hernia. Abdominal Nodes: No retroperitoneal or mesenteric adenopathy by size criteria. Vessels: Aorta and inferior vena cava are normal in size. PELVIS: Pelvic Organs: Small prostate calcifications. Bladder: No stones. Pelvic Nodes: No enlarged lymph nodes. Miscellaneous: No inguinal hernias are seen. Small focus of subcutaneous thickening at the right buttocks, (2/58), new. This could be seen in subcutaneous injection. Bones: Sclerosis at the right inferior pubic ramus, (2/83), unchanged. No new lesion seen. L3 Schmorl's node, unchanged. IMPRESSION: 1. Abnormal thickening and stranding surrounding the cecum. This is most suggestive of a colitis. It is difficult to exclude underlying mass. Recommend colonoscopy if not recently performed. 2. The appendix is not dilated. 3. Similar sclerosis at the right inferior pubic ramus consistent with osseous metastasis. 4. Small focus of subcutaneous thickening at the right buttocks. This could be due to subcutaneous injection or contusion. Less likely mass given its wispy appearance. Comment: Findings were discussed with Dr. James Wilde at the time of dictation. Dictated by: Shemar Tucker M.D. on 12/09/2021 at 19:03 Approved by: Shemar Tucker M.D. on 12/09/2021 at 19:16
[2021-12-09 19:46] LABS: Bacteria Urine None Seen; Culture Indicated Urine Cult Not Indicated; RBC Urine 1-5/HPF (0-5/HPF); WBC Urine None Seen (0-5/HPF)
== END 2021-12-09 19:37 | disposition home or self-care (01) ==
PROVIDERS: Emergency Provider Emergency Medicine; PCP Family Medicine
DX: K52.9 Noninfective gastroenteritis and colitis, unspecified (principal)
CPT/HCPCS: 36415; 74177; 80053; 81003; 81015; 83690; 85025; 96360; 99284

== ENCOUNTER 2023-01-14 12:54 | Emergency (ER) | payer OTHER, SELFPAY ==
[2023-01-14] VITALS (25 sets, daily range): BP systolic 98–169; BP diastolic 52–82; PULSE 50–67; RESP 9–52; TEMP 36.3; O2SAT 84–100; BMI 25.8
--- NOTE | 2023-01-14 13:03 | DI.RAD.S_ITS ---
PROCEDURE: XR CHEST 1V INDICATIONS: chest pain TECHNIQUE: One view of the chest was acquired. COMPARISON: [facility], , CHEST 1 VIEW, 05/08/2017, 12:59. FINDINGS: Surgical changes and devices: None. Lungs and pleura: Lungs are clear. No pleural effusions or pneumothorax. Mediastinum: Mediastinal contours appear normal. Heart size is normal. Bones and chest wall: No suspicious bony lesions. Overlying soft tissues appear unremarkable. IMPRESSION: No acute cardiopulmonary abnormality. Dictated by: Shemar Tucker M.D. on 01/14/2023 at 14:27 Approved by: Shemar Tucker M.D. on 01/14/2023 at 14:28
[2023-01-14 13:24] LABS: Add Manual Diff / Slide Review NO; Basophils Absolute Auto 0 /uL (0-100); Basophils Percent Auto 0.3 % (0-2); Eosinophils Absolute Auto 0 /uL (0-450); Eosinophils Percent Auto 0.5 % (2-4); Hemoglobin 12.3 g/dL (13.5-17.5); Lymphocytes Absolute Auto 1900 /uL (1100-4500); Lymphocytes Percent Auto 42.2 % (25-40); Mean Corpuscular HGB Conc 34.2 % (30-36); Mean Corpuscular Hemoglobin 31.2 PG (26-34); Mean Corpuscular Volume 91.1 fL (80-100); Monocytes Absolute Auto 300 /uL (0-900); Monocytes Percent Auto 7.7 % (3-14); Neutrophils Absolute Auto 2200 /uL (1500-7000); Neutrophils Percent Auto 49.3 % (50-75); Platelet Count 230 X10^3/uL (150-400); Red Blood Cell Count 3.96 X10^6/uL (4.5-5.9); Red Cell Distribution Width 13.7 % (11.6-14.8); White Blood Cell Count 4.5 X10^3/uL (4.5-11.0)
--- NOTE | 2023-01-14 13:30 | PC.NURSE ---
Patient reports continued dizziness and now fatigue. Pt intermittently falling asleep and noted to desat to 70's SPO2 on RA at times. Pt coached through deep breaths and 2L NC applied. Dr. Sánchez sun.
[2023-01-14 13:34] LABS: PTT Partial Thromboplastin Tim 25 SECONDS (26-36)
--- NOTE | 2023-01-14 13:35 | ED_ITS ---
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 Patient states he occasionally gets episodes, today he got very clammy he could feel the nystagmus in his eyes he got nauseated and vomited once. He states the 1 thing that is atypical from his episodes that has pulses low in the 50s he states he is normally 60s to 70s. Syncope but still is having the spins, denies headache, denies vision changes, no chest pain or shortness of breath. He states nausea is improving. He denies abdominal back or flank pain. No new issues with bowel movements or urination. No swelling in extremities. Patient denies numbness, tingling or weakness to his extremities. Patient is currently appear for his prostate cancer, he states he take a statin daily. Patient denies any prior surgeries. No known drug allergies. No tobacco, 1 alcoholic drink daily, no illicit. Dr. Lehman is his primary care. He follows with oncology thru [facility]. Related Data Home Medications Medication Instructions Recorded Confirmed [MAITAKE MUSHROOM] QDAY ##0 11/21/16 [TURMERIC] QDAY ##0 11/21/16 calcium carbonate 500 mg-vitamin 1 tab PO QDAY ##0 11/21/16 05/26/18 D3 5 mcg (200 unit) tablet (Oyster Shell Calcium-Vitamin D3) cholecalciferol (vitamin D3) 250 10,000 PO QDAY ##0 11/21/16 mcg (10,000 unit) tablet [CATCLAW TEA] ##0 12/10/16 [TINC OF CHAGA FUNGUS] ##0 12/10/16 [PROBIOTIC] 1 cap Q AM ##0 12/22/16 olive leaf extract 250 mg capsule 250 mg PO QDAY ##0 12/22/16 05/26/18 [ASHTANGA] QDAY ##0 01/07/17 vitamin B complex (B 1 tab PO QDAY ##0 02/18/17 05/26/18 Complex-Vitamin B12 tablet) [HI CBD OIL] ##0 03/13/17 Previous Rx's Medication Instructions Recorded acyclovir 400 mg tablet 400 mg PO BID #60 tabs 12/25/17 sulfamethoxazole 800 1 tab PO Q12H wound #14 tabs 01/05/18 mg-trimethoprim 160 mg tablet (Bactrim DS) sildenafil 50 mg tablet 50 mg PO PRN PRN Sexual Activity 01/15/18 #30 tabs amoxicillin 500 mg-potassium 1 tab PO BID #20 tabs 12/09/21 clavulanate 125 mg tablet (Augmentin) ondansetron 4 mg disintegrating 4 mg PO TID-QID PRN nausea and 12/09/21 tablet vomiting #10 tabs lorazepam 0.5 mg tablet (Ativan) 0.5 mg PO BID PRN nausea and 01/14/23 vomiting #7 tabs meclizine 25 mg chewable tablet 25 mg PO QID PRN dizziness #20 tabs 01/14/23 ondansetron 4 mg disintegrating 4 mg PO Q6H PRN nausea and 01/14/23 tablet vomiting #10 tabs Allergies Allergy/AdvReac Type Severity Reaction Status Date / Time No Known Drug Allergies Allergy Unknown Verified 07/19/21 11:30 [NO KNOWN DRUG ALLERGIES] Review of Systems Review of Systems ROS Unobtainable: All systems reviewed & are unremarkable except as noted in HPI and below Patient History Social History household members: children Smoking Status: Never smoker Smoking Status: Never smoker alcohol intake frequency: 0-2 drinks per day Substance Use Type: does not use Exam Narrative Exam Narrative: GEN: male, alert and oriented x 3, patient appears to be in mild distress. HEENT: Atraumatic, pupils are equal round reactive to light, extraocular movements are intact, no nystagmus, nares are clear, TMs are clear with no fluid, there is no conjunctival pallor. Throat is clear without any exudates, erythema, tonsillar enlargement or uvular deviation HEART: Regular rate and rhythm without murmur, clicks, rubs. Pulses are equal in upper and lower extremities LUNGS:Lungs clear to auscultation, no wheezes, rales, crackles, chest moves symmetrically ABD:bowel sounds normal, soft, non-tender, no guarding, rebound, rigidity, no masses noted, no hepatosplenomegaly :No CVA tenderness MSCL: Non-tender, no muscle atrophy, muscles strength 5/5 upper and lower extremities, full range of motion NEURO:CN 2-12 intact, sensation normal, finger nose finger test normal, heel miguel test normal SKIN: No rash, erythema or other skin changes Initial Vital Signs Initial Vital Signs: Vital Signs Temperature 97.4 F L 01/14/23 12:56 Pulse Rate 55 L 01/14/23 12:56 Respiratory Rate 20 01/14/23 12:56 Blood Pressure 110/61 01/14/23 12:56 Pulse Oximetry 100 01/14/23 12:56 Oxygen Delivery Method Room Air 01/14/23 12:56 Scores NIH Stroke Scale Level of Conciousness: Alert, keenly responsive Ask month/age: Answers both questions correctly. Open/close eyes, close hand: Performs both tasks correctly Best gaze horizontal: Normal Visual burns: No visual loss Facial palsy: Normal symetrical movement Left arm drift: No drift for full 10 sec Right arm drift: No drift for full 10 sec Left leg drift: No drift for full 5 sec Right leg drift: No drift for full 5 sec Limb ataxia: Absent Sensory on face/arms/legs: Normal, no sensory loss Best language: No aphasia, normal Dysarthria: Normal Extinction or inattention: No abnormality Total NIH Stroke scale score: 0 Course Orders Ordered: ED Orders 01/14/23 13:03 XR chest 1V Stat 01/14/23 13:10 Complete Blood Count AUTO DIFF Stat Comprehensive Metabolic Panel Stat Lipase Stat Magnesium Stat PTT Partial Thromboplastin Jeffery Stat Prothrombin Time INR Stat Troponin & CK Cardiac Panel Stat 01/14/23 13:11 EKG-12 Lead Stat 01/14/23 14:00 CT head/brain wo con Stat Discontinued Medications Aspirin (Aspirin 81 Mg Chew Tab) 324 mg PO NOW ONE Stop: 01/14/23 13:04 Last Admin: 01/14/23 13:35 Dose: Not Given Documented By: KB Lorazepam (Lorazepam 2 Mg/Ml Inj) 0.5 mg IV NOW ONE Stop: 01/14/23 17:04 Last Admin: 01/14/23 17:08 Dose: 0.5 mg Documented By: AT Meclizine HCl (Meclizine Hcl 12.5 Mg Tablet) 25 mg PO NOW ONE Stop: 01/14/23 13:35 Last Admin: 01/14/23 13:41 Dose: 25 mg Documented By: ARIELLE Meclizine HCl (Meclizine Hcl 12.5 Mg Tablet) 50 mg PO NOW ONE Stop: 01/14/23 16:48 Last Admin: 01/14/23 16:55 Dose: 50 mg Documented By: AT Ondansetron HCl (Ondansetron 4 Mg/2 Ml Inj) 4 mg IV NOW ONE Stop: 01/14/23 15:56 Last Admin: 01/14/23 15:59 Dose: 4 mg Documented By: ARIELLE Vital Signs Vital signs: Vital Signs - 8 hr 01/14/23 12:56 01/14/23 13:06 01/14/23 13:07 Temperature 97.4 F L Pulse Rate 55 L 50 L Respiratory Rate 20 11 L Blood Pressure 110/61 125/70 Pulse Oximetry 100 100 Oxygen Delivery Method Room Air Oxygen Flow Rate 01/14/23 13:07 01/14/23 13:15 01/14/23 13:15 Temperature Pulse Rate 50 L 53 L Respiratory Rate 17 9 L Blood Pressure 113/69 Pulse Oximetry 99 Oxygen Delivery Method Room Air Oxygen Flow Rate 01/14/23 13:30 01/14/23 13:30 01/14/23 13:45 Temperature Pulse Rate 55 L 57 L Respiratory Rate 19 10 L Blood Pressure 113/72 Pulse Oximetry 100 100 Oxygen Delivery Method Nasal Cannula Oxygen Flow Rate 2 01/14/23 13:45 01/14/23 14:00 01/14/23 14:01 Temperature Pulse Rate 64 Respiratory Rate 20 Blood Pressure 110/72 109/62 Pulse Oximetry 100 Oxygen Delivery Method Oxygen Flow Rate 01/14/23 14:01 01/14/23 14:15 01/14/23 14:15 Temperature Pulse Rate 67 61 Respiratory Rate 20 9 L Blood Pressure 107/66 Pulse Oximetry 100 100 Oxygen Delivery Method Oxygen Flow Rate 01/14/23 14:33 01/14/23 15:00 01/14/23 15:28 Temperature Pulse Rate 54 L 56 L Respiratory Rate 20 12 Blood Pressure 108/68 Pulse Oximetry 84 L 100 Oxygen Delivery Method Oxygen Flow Rate 01/14/23 15:28 01/14/23 15:30 01/14/23 15:30 Temperature Pulse Rate 58 L 55 L Respiratory Rate 14 Blood Pressure 108/70 Pulse Oximetry 99 100 Oxygen Delivery Method Oxygen Flow Rate 01/14/23 15:45 01/14/23 15:45 01/14/23 16:00 Temperature Pulse Rate 57 L 60 Respiratory Rate 20 Blood Pressure 111/77 Pulse Oximetry 99 100 Oxygen Delivery Method Oxygen Flow Rate 01/14/23 16:00 01/14/23 16:15 01/14/23 16:15 Temperature Pulse Rate 53 L Respiratory Rate Blood Pressure 119/82 115/66 Pulse Oximetry Oxygen Delivery Method Oxygen Flow Rate 01/14/23 16:30 01/14/23 16:30 01/14/23 16:45 Temperature Pulse Rate 52 L Respiratory Rate Blood Pressure 106/68 98/56 L Pulse Oximetry Oxygen Delivery Method Oxygen Flow Rate 01/14/23 16:45 01/14/23 17:00 01/14/23 17:01 Temperature Pulse Rate 52 L 59 L 57 L Respiratory Rate 15 26 H 27 H Blood Pressure Pulse Oximetry Oxygen Delivery Method Oxygen Flow Rate 01/14/23 17:01 01/14/23 17:15 01/14/23 17:15 Temperature Pulse Rate 55 L Respiratory Rate 52 H Blood Pressure 169/71 H 116/73 Pulse Oximetry Oxygen Delivery Method Oxygen Flow Rate 01/14/23 17:30 01/14/23 17:45 01/14/23 17:45 Temperature Pulse Rate 58 L 55 L Respiratory Rate 31 H 13 Blood Pressure 109/72 Pulse Oximetry Oxygen Delivery Method Oxygen Flow Rate 01/14/23 18:00 01/14/23 18:00 01/14/23 18:15 Temperature Pulse Rate 57 L Respiratory Rate 14 Blood Pressure 116/66 101/52 L Pulse Oximetry Oxygen Delivery Method Oxygen Flow Rate 01/14/23 18:15 Temperature Pulse Rate 58 L Respiratory Rate 15 Blood Pressure Pulse Oximetry 99 Oxygen Delivery Method Room Air Oxygen Flow Rate MDM - Dizziness Lab Data 01/14/23 13:10 01/14/23 13:10 Labs: Lab Results 01/14/23 01/14/23 01/14/23 Range/Units 13:10 13:10 13:10 WBC 4.5 (4.5-11.0) X10^3/uL RBC 3.96 L (4.5-5.9) X10^6/uL Hgb 12.3 L (13.5-17.5) g/dL Hct 36.0 L (41-53) % MCV 91.1 (80-100) fL MCH 31.2 (26-34) PG MCHC 34.2 (30-36) % RDW 13.7 (11.6-14.8) % Plt Count 230 (150-400) X10^3/uL Neut % (Auto) 49.3 L (50-75) % Lymph % (Auto) 42.2 H (25-40) % Mckean % (Auto) 7.7 (3-14) % Eos % (Auto) 0.5 L (2-4) % Baso % (Auto) 0.3 (0-2) % Neut # (Auto) 2200 (0016-0512) /uL Lymph # (Auto) 1900 (2253-5932) /uL Mckean # (Auto) 300 (0-900) /uL Eos # (Auto) 0 (0-450) /uL Baso # (Auto) 0 (0-100) /uL PT 11.0 (10.1-12.7) SECONDS INR 1.0 (0.9-1.3) APTT 25 L (26-36) SECONDS Sodium 135 L (137-145) mmol/L Potassium 3.4 (3.4-5.1) mmol/L Chloride 102 (98-107) mmol/L Carbon Dioxide 22 (22-32) mmol/L BUN 24 H (9-20) mg/dL Creatinine 0.76 (0.66-1.25) mg/dL Estimated GFR > 60 (>60) mL/min BUN/Creatinine Ratio 31.6 H (6-22) Glucose 123 H (80-110) mg/dL Calcium 8.8 (8.4-10.2) mg/dL Magnesium 1.9 (1.6-2.3) mg/dL Total Bilirubin 0.5 (0.2-1.3) mg/dL AST 26 (17-59) IU/L ALT 21 (<50) IU/L Alkaline Phosphatase 60 (38-126) U/L Total Creatine Kinase 69 (55-170) U/L CK-MB (CK-2) TNP CK-MB (CK-2) Rel Index TNP Troponin I < 0.012 (0.01-0.034) ng/mL Total Protein 7.4 (6.3-8.2) g/dL Albumin 4.2 (3.5-5.0) g/dL Globulin 3.2 (1.7-4.1) g/dL Albumin/Globulin Ratio 1.3 (1.0-2.8) Lipase 87 (23-300) U/L Point of Care Testing Glucose POC 116 Imaging Data Chest x-ray: Radiologist's Impression: No acute cardiopulmonary abnormality. CT scan - head: Radiologist's Impression: No acute intracranial abnormality. ECG Data Attestation: I personally reviewed and interpreted this ECG as follows: Prior ECG tracings: available for review Interpretation: Sinus bradycardia rate of 50 ID 168 QRS of 92 and QTC 457. Nonspecific. Patient has prior from 07/19/2021 which appears similar. Rates were in the 50s and patient has 1 prior to that were rate was 57. MDM Narrative Medical decision making narrative: This is a 62-year-old male who comes to the emergency department with complaint of vertigo.? Patient has had prior episodes on and off since age 21 when he would his 1st episode while living in [place] and going to school [employer].? States it tapered off until he started chemotherapy and he since had more frequent episodes.? Patient states heart rate is slow side. Patient's neuro exam is overall negative. Heart rates been 50s to 60s. He has no nystagmus on exam his neuro exam is otherwise negative with an NIH of 0. Discussed trying a dose of meclizine. With his metastatic history discussed I would like to obtain a head CT patient had an MRI in 07/19/2021 here no other imaging of his brain available to myself currently. He states he is had recent imaging [facility] [place], he did have CT chest, chest abdomen pelvis but was not able to find head CT in the last 2 years discussed would like to obtain head CT to rule out metastases Labs show hemoglobin of hematocrit 36 normal white count platelets are 230. Coags are negative, sodium 135 normal electrolytes BUN 20, glucose is 123 with normal LFTs negative troponin. Head CT is negative as well as chest x-ray. EKG shows sinus bradycardia patient's prior EKGs were in the 50s as well. He is starting to feel improved before medication but then was feeling worse. Attempted Jah maneuver on right and left is on dex hyperpigmentation did not have a clear lateralizing side. Patient had no real improvement with Jah maneuver. Had 1 episode of vomiting afterwards so was given Ativan and had significant improvement in symptoms. Patient was able to ambulate throughout the department. We did discuss if he is having persistent symptoms he should have MRI or further workup as there are other potential causes. He has had longstanding vertigo intermittently he states his overall been very similar he typically does have improvement and sometimes has improvement with Jah maneuver but not always. Patient feels comfortable with this plan. Discussed return precautions. Discharge Plan Departure Patient Disposition: Home Clinical Impression: Vertigo Instructions: DI for Vertigo Activity Restrictions/Additional Instructions: Please follow-up with ENT if your symptoms are persisting. You can continue to perform Jah maneuver at home you find it helpful. I would also recommend sleeping at a 45 degree angle. You can take meclizine 1-2 tablets every 6 hours as needed for vertigo or dizziness. If this is an adequate you can take 1 tablet of Ativan every 12-8 hours as needed for vertigo or dizziness. This medication can make you sleepy do not drive, perform hazardous activities or make any major decisions while taking it. You can take Zofran 1 tablet every 6 hours as needed for nausea or vomiting. Prescription sent to [facility] in [place]. Please return for worsening symptoms, severe headaches, new numbness, tingling or weakness, facial droop, difficulty with ambulation, persistent vomiting, facial droop, difficulty with speech or other new or concerning changes. Prescriptions: New ondansetron 4 mg tablet,disintegrating 4 mg PO Q6H PRN (Reason: nausea and vomiting) Qty: 10 0RF meclizine 25 mg tablet,chewable 25 mg PO QID PRN (Reason: dizziness) Qty: 20 0RF lorazepam [Ativan] 0.5 mg tablet 0.5 mg PO BID PRN (Reason: nausea and vomiting) Qty: 7 0RF No Action calcium carbonate-vitamin D3 [Oyster Shell Calcium-Vit D3] 500 MG/200 IU tablet 1 tab PO QDAY Qty: 0 cholecalciferol (vitamin D3) 10,000 UNIT tablet 10,000 PO QDAY Qty: 0 [TURMERIC] QDAY Qty: 0 [MAITAKE MUSHROOM] QDAY Qty: 0 [CATCLAW TEA] Qty: 0 [TINC OF CHAGA FUNGUS] Qty: 0 [PROBIOTIC] 1 cap Q AM Qty: 0 olive leaf extract 250 MG capsule 250 mg PO QDAY Qty: 0 [ASHTANGA] QDAY Qty: 0 vitamin B complex [B Complex-Vitamin B12] 1 EACH tablet 1 tab PO QDAY Qty: 0 [HI CBD OIL] Qty: 0 acyclovir 400 MG tablet 400 mg PO BID Qty: 60 2RF sulfamethoxazole-trimethoprim [Bactrim DS] 800-160 mg Tablet 1 tab PO Q12H Qty: 14 0RF sildenafil 50 mg Tablet 50 mg PO PRN PRN (Reason: Sexual Activity) Qty: 30 2RF Rx Instructions: administer 30 minutes to 4 hours before activity amoxicillin-pot clavulanate [Augmentin] 500-125 mg tablet 1 tab PO BID Qty: 20 0RF ondansetron 4 mg tablet,disintegrating 4 mg PO TID-QID PRN (Reason: nausea and vomiting) Qty: 10 0RF Referrals: Myles Caraballo MD [Physician] - Marco Zheng MD [Primary Care Provider] - Stand Alone Forms: Patient Portal/API
[2023-01-14 13:39] LABS: Alanine Aminotransferase 21 IU/L (<50); Albumin 4.2 g/dL (3.5-5.0); Albumin Globulin Ratio 1.3 (1.0-2.8); Alkaline Phosphatase 60 U/L (38-126); Aspartate Aminotransferase 26 IU/L (17-59); BUN Creatinine Ratio 31.6 (6-22); Bilirubin Total 0.5 mg/dL (0.2-1.3); Blood Urea Nitrogen 24 mg/dL (9-20); Calcium 8.8 mg/dL (8.4-10.2); Carbon Dioxide 22 mmol/L (22-32); Chloride 102 mmol/L (98-107); Creatine Kinase 69 U/L (55-170); Estimated Glomerular Filt Rate > 60 mL/min (>60); Globulin 3.2 g/dL (1.7-4.1); Glucose 123 mg/dL (80-110); HEMOLYSIS < 15 (0-50); Lipase 87 U/L (23-300); Magnesium 1.9 mg/dL (1.6-2.3); Potassium 3.4 mmol/L (3.4-5.1); Sodium 135 mmol/L (137-145); Total Protein 7.4 g/dL (6.3-8.2)
[2023-01-14] MEDS: MECLIZINE HCL 12.5 MG TABLET 25 MG PO (13:41)
[2023-01-14 13:48] LABS: Troponin I < 0.012 ng/mL (0.01-0.034)
--- NOTE | 2023-01-14 14:00 | DI.CT.S_ITS ---
PROCEDURE: CT HEAD/BRAIN WO CON INDICATIONS: vertigo symptoms, has hx also metastatic prostate ca TECHNIQUE: Noncontrast 4.5 mm thick angled axial sections acquired from the foramen magnum to the vertex, with coronal and sagittal reformats. For radiation dose reduction, the following was used: automated exposure control, adjustment of mA and/or kV according to patient size. COMPARISON: [facility], CT, HEAD WITHOUT CONTRAST, 05/08/2017, 12:57. FINDINGS: Image quality: Excellent. CSF spaces: Basal cisterns are patent. No extra-axial fluid collections. Ventricles are normal in size and shape. Brain: No midline shift. No intracranial masses or hemorrhage. No area of hypodensity in a large vascular distribution to suggest acute infarction. Periventricular hypodensity consistent with chronic microvascular ischemic change. Age-related parenchymal loss. Skull and face: Calvarium and visualized facial bones are intact, without suspicious lesions. Sinuses: Visualized sinuses and mastoids are clear. IMPRESSION: No acute intracranial abnormality. Dictated by: Shemar Tucker M.D. on 01/14/2023 at 15:03 Approved by: Shemar Tucker M.D. on 01/14/2023 at 15:06
[2023-01-14] MEDS: ONDANSETRON 4 MG/2 ML INJ IV (15:59)
[2023-01-14] MEDS: MECLIZINE HCL 12.5 MG TABLET 50 MG PO (16:55)
[2023-01-14] MEDS: LORazepam 2 MG/ML INJ 0.5 MG IV (17:08)
--- NOTE | 2023-01-14 17:26 | PC.NURSE ---
After initial dose of Meclizine, pt states he had episode of vomiting, Dr. Pozo aware. Pt reporting continued dizziness, intermittent nausea and small amount of vomiting.
--- NOTE | 2023-01-14 18:32 | PC.NURSE ---
Pt reports significant improvement in symptoms. Ambulated to bathroom independently with steady gait, able to move head around, denies dizziness or nausea.
== END 2023-01-14 18:38 | disposition home or self-care (01) ==
PROVIDERS: Emergency Provider Emergency Medicine; PCP Family Medicine
DX: R42 Dizziness and giddiness (principal); R00.1 Bradycardia, unspecified; R11.2 Nausea with vomiting, unspecified; Z79.899 Other long term (current) drug therapy
CPT/HCPCS: 36415; 70450; 71045; 80053; 82550; 82962; 83690; 83735; 84484; 85025; 85610; 85730; 93005; 93010; 96374; 96375; 99284; 99285; J2060; J2405

== ENCOUNTER → 2023-05-20 13:56 | Outpatient (CLI) | payer OTHER, SELFPAY ==
[2023-05-20 14:24] LABS: Add Manual Diff / Slide Review NO; Basophils Absolute Auto 0 /uL (0-100); Basophils Percent Auto 0.4 % (0-2); Eosinophils Absolute Auto 100 /uL (0-450); Eosinophils Percent Auto 2.3 % (2-4); Hematocrit 34.3 % (41-53); Hemoglobin 11.9 g/dL (13.5-17.5); Lymphocytes Absolute Auto 1000 /uL (1100-4500); Lymphocytes Percent Auto 33.7 % (25-40); Mean Corpuscular HGB Conc 34.8 % (30-36); Mean Corpuscular Hemoglobin 31.6 PG (26-34); Monocytes Absolute Auto 500 /uL (0-900); Monocytes Percent Auto 18.9 % (3-14); Neutrophils Absolute Auto 1300 /uL (1500-7000); Neutrophils Percent Auto 44.7 % (50-75); Platelet Count 192 X10^3/uL (150-400); Red Blood Cell Count 3.77 X10^6/uL (4.5-5.9); Red Cell Distribution Width 13.1 % (11.6-14.8); White Blood Cell Count 2.8 X10^3/uL (4.5-11.0)
== END ==
PROVIDERS: PCP Family Medicine; Referring Provider Physician Assistant; Visit Provider Physician Assistant
DX: C61 Malignant neoplasm of prostate (principal); Z19.2 Hormone resistant malignancy status
CPT/HCPCS: 36415; 85025

== ENCOUNTER → 2023-05-22 15:04 | Outpatient (CLI) | payer OTHER, SELFPAY ==
[2023-05-22 16:49] LABS: Alanine Aminotransferase 55 IU/L (<50); Albumin 3.9 g/dL (3.5-5.0); Albumin Globulin Ratio 1.3 (1.0-2.8); Alkaline Phosphatase 124 U/L (38-126); Aspartate Aminotransferase 32 IU/L (17-59); Bilirubin Total 0.5 mg/dL (0.2-1.3); Bilirubin Unconjugated 0.4 mg/dL (0.0-1.1); Globulin 2.9 g/dL (1.7-4.1); HEMOLYSIS < 15 (0-50); Total Protein 6.8 g/dL (6.3-8.2)
== END ==
PROVIDERS: PCP Family Medicine; Referring Provider Physician Assistant; Visit Provider Physician Assistant
DX: C61 Malignant neoplasm of prostate (principal); Z19.2 Hormone resistant malignancy status
CPT/HCPCS: 36415; 80076

== ENCOUNTER → 2023-09-15 15:53 | Outpatient (CLI) | payer OTHER, SELFPAY ==
--- NOTE | 2023-09-15 | DI.US.S_ITS ---
PROCEDURE: US EXTREMITY NONVASC LOWER LT INDICATIONS: LEFT KNEE MASS TECHNIQUE: Real-time scanning was performed of the left knee, with image documentation. COMPARISON: None. FINDINGS: Focused ultrasound examination of left knee anterior to the left patella shows and anechoic structure with through acoustic shadowing within deep soft tissue measures 1.9 x 0.7 x 1.9 cm in size. Thin internal septation is noted. No internal vascularity is seen. IMPRESSION: 1.9 x 0.7 x 1.9 cm fluid collection within deep soft tissue along anterior aspect of patella and show no internal vascularity. Finding may represent soft tissue ganglion cyst versus old hematoma versus prepatellar bursal fluid and bursitis suggest clinical correlation and follow-up. Dictated by: Franck Turenr M.D. on 09/15/2023 at 17:05 Approved by: Franck Turner M.D. on 09/15/2023 at 17:07
== END ==
PROVIDERS: PCP Family Medicine; Referring Provider Family Medicine; Visit Provider Family Medicine
DX: R22.42 Localized swelling, mass and lump, left lower limb (principal)
CPT/HCPCS: 76882

== ENCOUNTER → 2024-09-22 12:19 | Outpatient (ROUT) | payer OTHER, SELFPAY ==
[2024-09-22 13:12] LABS: Influenza A - CEPHEID Flu A POSITIVE (NEGATIVE); Influenza B - CEPHEID Flu B NEGATIVE (NEGATIVE); Respiratory Syncytial Virus Negative (Negative)
[2024-09-22 13:18] LABS: COVID-19 CEPHEID 4-PLEX PCR Negative (Negative)
== END ==
PROVIDERS: PCP Family Medicine; Visit Provider Family Medicine
DX: R05.1 Acute cough (principal)
CPT/HCPCS: 0241U

== ENCOUNTER → 2024-10-11 10:10 | Outpatient (CLI) | payer OTHER, SELFPAY ==
[2024-10-11 10:38] LABS: Add Manual Diff / Slide Review NO; Basophils Absolute Auto 0 /uL (0-100); Basophils Percent Auto 0.3 % (0-2); Eosinophils Absolute Auto 0 /uL (0-450); Eosinophils Percent Auto 0.9 % (2-4); Hematocrit 35.1 % (41-53); Lymphocytes Absolute Auto 700 /uL (1100-4500); Lymphocytes Percent Auto 19.3 % (25-40); Mean Corpuscular HGB Conc 34.1 % (30-36); Mean Corpuscular Hemoglobin 31.1 PG (26-34); Mean Corpuscular Volume 91.2 fL (80-100); Monocytes Absolute Auto 400 /uL (0-900); Monocytes Percent Auto 11.6 % (3-14); Neutrophils Absolute Auto 2500 /uL (1500-7000); Neutrophils Percent Auto 67.9 % (50-75); Platelet Count 225 X10^3/uL (150-400); Red Blood Cell Count 3.85 X10^6/uL (4.5-5.9); Red Cell Distribution Width 14.2 % (11.6-14.8); White Blood Cell Count 3.7 X10^3/uL (4.5-11.0)
[2024-10-11 11:35] LABS: Prostate Specific Antigen 64.3 ng/mL (0.10-4.00)
[2024-10-11 17:09] LABS: Alanine Aminotransferase 25 IU/L (<50); Albumin Globulin Ratio 1.3 (1.0-2.8); Alkaline Phosphatase 139 U/L (38-126); Aspartate Aminotransferase 28 IU/L (17-59); BUN Creatinine Ratio 19.3 (6-22); Bilirubin Total 0.4 mg/dL (0.2-1.3); Blood Urea Nitrogen 16 mg/dL (9-20); Calcium 9.6 mg/dL (8.4-10.2); Carbon Dioxide 25 mmol/L (22-32); Chloride 104 mmol/L (98-107); Estimated Glomerular Filt Rate > 60 mL/min (>60); Globulin 3.1 g/dL (1.7-4.1); Glucose 116 mg/dL (80-110); HEMOLYSIS < 15 (0-50); Potassium 4.5 mmol/L (3.4-5.1); Sodium 139 mmol/L (137-145); Total Protein 7.1 g/dL (6.3-8.2)
== END ==
PROVIDERS: PCP Family Medicine; Referring Provider Physician Assistant; Visit Provider Physician Assistant
DX: C61 Malignant neoplasm of prostate (principal); Z19.2 Hormone resistant malignancy status
CPT/HCPCS: 36415; 80053; 84153; 85025

== ENCOUNTER → 2025-03-06 07:38 | Outpatient (CLI) | payer OTHER, SELFPAY ==
[2025-03-06 08:15] LABS: Add Manual Diff / Slide Review NO; Hematocrit 34.2 % (41-53); Hemoglobin 11.9 g/dL (13.5-17.5); Lymphocytes Absolute Auto 800 /uL (1100-4500); Mean Corpuscular HGB Conc 34.8 % (30-36); Mean Corpuscular Hemoglobin 31.9 PG (26-34); Mean Corpuscular Volume 91.6 fL (80-100); Platelet Count 210 X10^3/uL (150-400)
[2025-03-06 08:33] LABS: Alanine Aminotransferase 29 IU/L (<50); Albumin 3.9 g/dL (3.5-5.0); Albumin Globulin Ratio 1.3 (1.0-2.8); Alkaline Phosphatase 88 U/L (38-126); Blood Urea Nitrogen 18 mg/dL (9-20); Calcium 8.9 mg/dL (8.4-10.2); Carbon Dioxide 26 mmol/L (22-32); Chloride 103 mmol/L (98-107); Estimated Glomerular Filt Rate > 60 mL/min (>60); Globulin 3.0 g/dL (1.7-4.1); Glucose 80 mg/dL (70-99); HEMOLYSIS < 15 (0-50); Potassium 4.0 mmol/L (3.4-5.1); Sodium 137 mmol/L (137-145); Total Protein 6.9 g/dL (6.3-8.2)
[2025-03-06 09:04] LABS: Prostate Specific Antigen 40.2 ng/mL (0.10-4.00)
== END ==
PROVIDERS: PCP Family Medicine; Referring Provider Physician Assistant; Visit Provider Physician Assistant
DX: C61 Malignant neoplasm of prostate (principal); C79.51 Secondary malignant neoplasm of bone; Z19.2 Hormone resistant malignancy status
CPT/HCPCS: 36415; 80053; 84153; 85025

== ENCOUNTER → 2025-07-10 08:10 | Outpatient (CLI) | payer OTHER, SELFPAY ==
[2025-07-10 09:18] LABS: Add Manual Diff / Slide Review NO; Hematocrit 30.1 % (41-53); Hemoglobin 10.4 g/dL (13.5-17.5); Lymphocytes Absolute Auto 800 /uL (1100-4500); Mean Corpuscular HGB Conc 34.7 % (30-36); Mean Corpuscular Hemoglobin 32.1 PG (26-34); Mean Corpuscular Volume 92.7 fL (80-100); Platelet Count 305 X10^3/uL (150-400)
== END ==
PROVIDERS: PCP Family Medicine; Referring Provider Physician Assistant; Visit Provider Physician Assistant
DX: C61 Malignant neoplasm of prostate (principal)
CPT/HCPCS: 36415; 85025

== ENCOUNTER → 2025-07-17 13:57 | Outpatient (CLI) | payer OTHER, SELFPAY ==
[2025-07-17 14:20] LABS: Add Manual Diff / Slide Review NO; Hematocrit 32.4 % (41-53); Hemoglobin 11.1 g/dL (13.5-17.5); Lymphocytes Absolute Auto 800 /uL (1100-4500); Mean Corpuscular HGB Conc 34.2 % (30-36); Mean Corpuscular Hemoglobin 31.9 PG (26-34); Mean Corpuscular Volume 93.2 fL (80-100); Platelet Count 210 X10^3/uL (150-400)
== END ==
PROVIDERS: PCP Family Medicine; Referring Provider Physician Assistant; Visit Provider Physician Assistant
DX: C79.51 Secondary malignant neoplasm of bone (principal)
CPT/HCPCS: 36415; 85025